=== PATIENT | female | born 1950 | race Caucasian/White ===

== ENCOUNTER 2018-03-25 10:02 | Emergency (ER) | payer MEDICARE, OTHER ==
[2018-03-25] MEDS ORDERED: Sodium Chloride 0.9% 2.5 ML Syringe FLUSH PRN (10:08)
[2018-03-25] MEDS ORDERED: Sodium Chloride 0.9% 10 ML Syringe FLUSH PRN (10:08)
[2018-03-25] MEDS ORDERED: Sodium Chloride 0.9% 1,000 ML IV ONE ×2 (10:09→10:54)
[2018-03-25 10:43] LABS: CHLORIDE,CL 104 mmol/L (98-107); SODIUM,NA 141 mmol/L (136-145)
--- NOTE | 2018-03-25 10:57 | CR ---
EXAMINATION: Two-view chest (PA and Lateral views). HISTORY: Shortness of breath. FINDINGS: The trachea is midline. The cardiomediastinal silhouette is within normal limits. No pulmonary infilt rates, effusions or pneumothorax. Mild bibasilar atelectasis. Osseous structures appear unremarkable. IMPRESSION: No acute cardiopulmonary process.
[2018-03-25] MEDS ORDERED: cefTRIAXone 1 GM in Premix Bag 1 BAG IV ONE (11:03)
--- NOTE | 2018-03-25 11:18 | EDM.PDOC ---
ED HPI GENERAL MEDICAL PROBLEM - General Chief Complaint: Cardiovascular Problem Stated Complaint: LOW BLOOD PRESSURE Time Seen by Provider: 03/25/18 10:07 Source of Information: Reports: Patient History Limitations: Reports: No Limitations - History of Present Illness INITIAL COMMENTS - FREE TEXT/NARRATIVE: HISTORY AND PHYSICAL: 67-year-old female presenting with low blood pressure History of Present Illness: []Patient was at the clinic yesterday blood pressure 60s over 40s. She received a liter of fluid IV at the clinic and improved. Today with reevaluation her blood pressure was 75/40 and she was sent to the emergency department. The pressure on arrival here 117/70 When she was taken for chest x-ray and returned her blood pressure was 75/40. She has some dizziness "some time". She's had cortisone injections to her knees and a hip injection she also was recently on prednisone 20 mg for 5 days and with amoxicillin for a double ear infection. Is not on any medication for infection at this time her chart has been reviewed vital signs reviewed. Patient is complaining of burning to the bottom of her feet at night when she goes to bed Review of Systems: As per history of present illness and below otherwise all systems reviewed and negative. Past medical history: As per history of present illness and as reviewed below otherwise noncontributory. Surgical history: As per history of present illness and as reviewed below otherwise noncontributory. Social history: No reported history of drug or alcohol abuse. Family history: As per history of present illness and as reviewed below otherwise noncontributory. Physical exam: Alert and oriented female answering questions appropriately in full sentences without any shortness of breath. She is nontoxic in appearance. HEENT: Atraumatic, normocehpalic, pupils reactive, negative for conjunctival pallor or scleral icterus, mucous membranes moist, throat clear, neck supple, nontender, trachea midline. Lungs: Clear to auscultation, breath sounds equal bilaterally, chest non tender. Heart: S1S2, regular, negative for clicks, rubs, or JVD. Abdomen: Soft, nondistended, nontender. Negative for masses or hepatossplenmegaly. Positive for right costovertebral tenderness. Pelvis: Stable nontender. Genitourinary: Deferred. Rectal: Deferred Extremities: Atraumatic, negative for cords or calf pain. Neurovascular unremarkable. Neuro: Awake, alert, oriented. Cranial nerves II through XII unremarkable. Cerebellum unremarkable. Motor and sensory unremarkable throughout. Exam nonfocal. Diagnostics: []CBC, CMP, TSH, EKG, CXR, AMYLASE, LIPASE, ORTHOSTATIC HYPOTENSION Therapeutics: []NS IV ROCEPHIN 1 GM IV Impression: [Dehydration UTI ORTHOSTATIC HYPOTENSION Peripheral Neuropathy Plan: []Discharged home Ciprofloxacin 500 mg twice a day 5 days Gabapentin 300 mg at at bedtime when necessary#20 Follow up with your PCP Zulma Reyes NP Definitive disposition and diagnosis as appropriate pending reevaluation and review of above. Onset: Sudden Duration: Day(s): (2) Location: Reports: Generalized Quality: Reports: Same as Previous Episode Severity: Mild Improves with: Reports: None Worsens with: Reports: None Associated Symptoms: Reports: Other (dizziness) - Related Data Allergies Allergy/AdvReac Type Severity Reaction Status Date / Time animal dander Allergy Sneezing Verified 03/25/18 10:05 perfume Allergy Sneezing Verified 03/25/18 10:05 Home Meds: Home Meds Aspirin [[place] Aspirin] 81 mg PO DAILY 05/20/15 [History] Estrogens,Conj/Bazedoxifene [Duavee 0.45-20 mg Tablet] 1 tab PO DAILY 05/20/15 [ History] Lisinopril/Hydrochlorothiazide [Lisinopril-Hctz 20-12.5 mg Tab] 1 tab PO DAILY 05/20/15 [History] atorvaSTATin Calcium [Atorvastatin Calcium] 80 mg PO DAILY 05/20/15 [History] Ciprofloxacin HCl [Cipro] 500 mg PO BID #10 tablet 03/25/18 [Rx] Gabapentin [Neurontin] 100 mg PO DAILY #20 capsule 03/25/18 [Rx] Past Medical History HEENT History: Reports: None Cardiovascular History: Reports: High Cholesterol, Hypertension Respiratory History: Reports: None Gastrointestinal History: Reports: None Genitourinary History: Reports: None MENTAL HEALTH DIRECTOR History: Reports: Musculoskeletal History: Reports: None Neurological History: Reports: None Psychiatric History: Reports: None Endocrine/Metabolic History: Reports: None Hematologic History: Reports: None Immunologic History: Reports: None Oncologic (Cancer) History: Reports: None Dermatologic History: Reports: None - Infectious Disease History Infectious Disease History: Reports: Mumps - Past Surgical History Head Surgeries/Procedures: Reports: None HEENT Surgical History: Reports: None Cardiovascular Surgical History: Reports: None Respiratory Surgical History: Reports: None GI Surgical History: Reports: None Female Surgical History: Reports: None Endocrine Surgical History: Reports: None Neurological Surgical History: Reports: None Musculoskeletal Surgical History: Reports: None Oncologic Surgical History: Reports: None Dermatological Surgical History: Reports: None Social & Family History - Family History Family Medical History: Noncontributory - Tobacco Use Smoking Status *Q: Former Smoker Used Tobacco, but Quit: Yes Month/Year Tobacco Last Used: 1997 - Caffeine Use Caffeine Use: Reports: None - Recreational Drug Use Recreational Drug Use: No ED ROS GENERAL - Review of Systems Review Of Systems: ROS reveals no pertinent complaints other than HPI. ED EXAM, GENERAL - Physical Exam Exam: See Below (see dictation) Course - Vital Signs Last Recorded V/S: Last Vital Signs Temp 35.9 C 03/25/18 10:06 Pulse 69 03/25/18 11:58 Resp 16 03/25/18 11:58 BP 111/57 L 03/25/18 11:58 Pulse Ox 95 03/25/18 11:58 Orthostatic Blood Pressure [ 93/54 Standing] Orthostatic Blood Pressure [ 103/55 Sitting] Orthostatic Blood Pressure [ 104/54 Supine] - Orders/Labs/Meds Orders: Active Orders 24 hr Category Date Time Status EKG Documentation Completion [RC] STAT Care 03/25/18 10:24 Active Orthostatic Vital Signs [RC] ASDIRECTED Care 03/25/18 10:56 Active UA W/MICROSCOPIC [URIN] Stat Lab 03/25/18 10:24 Ordered Sodium Chloride 0.9% [Saline Flush] Med 03/25/18 10:08 Active 10 ml FLUSH ASDIRECTED PRN Sodium Chloride 0.9% [Saline Flush] Med 03/25/18 10:08 Active 2.5 ml FLUSH ASDIRECTED PRN Saline Lock Insert [OM.PC] Stat Oth 03/25/18 10:08 Ordered Medication Orders Sodium Chloride (Saline Flush) 10 ml FLUSH ASDIRECTED PRN PRN Reason: Keep Vein Open Sodium Chloride (Saline Flush) 2.5 ml FLUSH ASDIRECTED PRN PRN Reason: Keep Vein Open Labs: Laboratory Tests 03/25/18 03/25/18 03/25/18 Range/Units 10:12 10:12 10:24 WBC 11.05 H (4.0-11.0) K/uL RBC 4.04 L (4.30-5.90) M/uL Hgb 11.7 L (12.0-16.0) g/dL Hct 36.0 (36.0-46.0) % MCV 89.1 (80.0-98.0) fL MCH 29.0 (27.0-32.0) pg MCHC 32.5 (31.0-37.0) g/dL RDW Std Deviation 41.9 (28.0-62.0) fl RDW Coeff of Kanu 13 (11.0-15.0) % Plt Count 201 (150-400) K/uL MPV 10.90 (7.40-12.00) fL Neut % (Auto) 70.2 (48.0-80.0) % Lymph % (Auto) 20.7 (16.0-40.0) % [place] % (Auto) 6.7 (0.0-15.0) % Eos % (Auto) 2.1 (0.0-7.0) % Baso % (Auto) 0.3 (0.0-1.5) % Neut # (Auto) 7.8 H (1.4-5.7) K/uL Lymph # (Auto) 2.3 (0.6-2.4) K/uL [place] # (Auto) 0.7 (0.0-0.8) K/uL Eos # (Auto) 0.2 (0.0-0.7) K/uL Baso # (Auto) 0.0 (0.0-0.1) K/uL Sodium 141 (136-145) mmol/L Potassium 3.6 (3.5-5.1) mmol/L Chloride 104 (98-107) mmol/L Carbon Dioxide 25.7 (21.0-32.0) mmol/L BUN 29 H (7.0-18.0) mg/dL Creatinine 1.5 H (0.6-1.0) mg/dL Est Cr Clr Drug Dosing 31.43 mL/min Estimated GFR (MDRD) 34.6 ml/min Glucose 102 (74-106) mg/dL Calcium 10.2 H (8.5-10.1) mg/dL Total Bilirubin 0.5 (0.2-1.0) mg/dL AST 21 (15-37) IU/L ALT 36 (14-63) IU/L Alkaline Phosphatase 81 (46-116) U/L Troponin I < 0.050 (0.000-0.056) ng/mL Total Protein 7.3 (6.4-8.2) g/dL Albumin 4.0 (3.4-5.0) g/dL Globulin 3.3 (2.0-3.5) g/dL Albumin/Globulin Ratio 1.2 L (1.3-2.8) Amylase 122 H (25-115) U/L TSH 3rd Generation (0.36-3.74) uIU/mL Urine Color YELLOW Urine Appearance CLEAR Urine pH 7.5 (5.0-8.0) Ur Specific [place] 1.015 (1.001-1.035) Urine Protein 30 (NEGATIVE) mg/dL Urine Glucose (UA) NEGATIVE (NEGATIVE) mg/dL Urine Ketones NEGATIVE (NEGATIVE) mg/dL Urine Occult Blood TRACE-INTACT (NEGATIVE) Urine Nitrite NEGATIVE (NEGATIVE) Urine Bilirubin NEGATIVE (NEGATIVE) Urine Urobilinogen 0.2 (<2.0) EU/dL Ur Leukocyte Esterase TRACE (NEGATIVE) Urine RBC 2-4 (0-2/HPF) Urine WBC 10-15 (0-5/HPF) Ur Epithelial Cells MANY (NONE-FEW) Urine Bacteria 1+ H (NEGATIVE) 03/25/18 Range/Units 10:59 WBC (4.0-11.0) K/uL RBC (4.30-5.90) M/uL Hgb (12.0-16.0) g/dL Hct (36.0-46.0) % MCV (80.0-98.0) fL MCH (27.0-32.0) pg MCHC (31.0-37.0) g/dL RDW Std Deviation (28.0-62.0) fl RDW Coeff of Kanu (11.0-15.0) % Plt Count (150-400) K/uL MPV (7.40-12.00) fL Neut % (Auto) (48.0-80.0) % Lymph % (Auto) (16.0-40.0) % [place] % (Auto) (0.0-15.0) % Eos % (Auto) (0.0-7.0) % Baso % (Auto) (0.0-1.5) % Neut # (Auto) (1.4-5.7) K/uL Lymph # (Auto) (0.6-2.4) K/uL [place] # (Auto) (0.0-0.8) K/uL Eos # (Auto) (0.0-0.7) K/uL Baso # (Auto) (0.0-0.1) K/uL Sodium (136-145) mmol/L Potassium (3.5-5.1) mmol/L Chloride (98-107) mmol/L Carbon Dioxide (21.0-32.0) mmol/L BUN (7.0-18.0) mg/dL Creatinine (0.6-1.0) mg/dL Est Cr Clr Drug Dosing mL/min Estimated GFR (MDRD) ml/min Glucose (74-106) mg/dL Calcium (8.5-10.1) mg/dL Total Bilirubin (0.2-1.0) mg/dL AST (15-37) IU/L ALT (14-63) IU/L Alkaline Phosphatase (46-116) U/L Troponin I (0.000-0.056) ng/mL Total Protein (6.4-8.2) g/dL Albumin (3.4-5.0) g/dL Globulin (2.0-3.5) g/dL Albumin/Globulin Ratio (1.3-2.8) Amylase (25-115) U/L TSH 3rd Generation 2.20 (0.36-3.74) uIU/mL Urine Color Urine Appearance Urine pH (5.0-8.0) Ur Specific [place] (1.001-1.035) Urine Protein (NEGATIVE) mg/dL Urine Glucose (UA) (NEGATIVE) mg/dL Urine Ketones (NEGATIVE) mg/dL Urine Occult Blood (NEGATIVE) Urine Nitrite (NEGATIVE) Urine Bilirubin (NEGATIVE) Urine Urobilinogen (<2.0) EU/dL Ur Leukocyte Esterase (NEGATIVE) Urine RBC (0-2/HPF) Urine WBC (0-5/HPF) Ur Epithelial Cells (NONE-FEW) Urine Bacteria (NEGATIVE) Meds: Medications Generic Name Dose Route Start Last Admin Trade Name Angela PRN Reason Stop Dose Admin Sodium Chloride 10 ml 03/25/18 10:08 Saline Flush FLUSH ASDIRECTED PRN Keep Vein Open Sodium Chloride 2.5 ml 03/25/18 10:08 Saline Flush FLUSH ASDIRECTED PRN Keep Vein Open Discontinued Medications Generic Name Dose Route Start Last Admin Trade Name Angela PRN Reason Stop Dose Admin Sodium Chloride 1,000 mls @ 999 mls/hr 03/25/18 10:09 03/25/18 11:18 Normal Saline IV 03/25/18 11:09 400 mls/hr STAT ONE Infusion Sodium Chloride 1,000 mls @ 999 mls/hr 03/25/18 10:54 03/25/18 11:19 Normal Saline IV 03/25/18 11:54 999 mls/hr STAT ONE Administration Ceftriaxone Sodium/Dextrose 1 50 mls @ 100 mls/hr 03/25/18 11:03 03/25/18 11: 18 gm/ Premix IV 03/25/18 11:32 100 mls/hr ONETIME ONE Administration Departure - Departure Time of Disposition: 12:28 Disposition: Home, Self-Care 01 Condition: Good Clinical Impression: Dehydration UTI (urinary tract infection) Qualifiers: Urinary tract infection type: acute cystitis Hematuria presence: without hematuria Qualified Code(s): N30.00 - Acute cystitis without hematuria Peripheral neuropathy Qualifiers: Peripheral neuropathy type: polyneuropathy, unspecified Qualified Code(s): G62.9 - Polyneuropathy, unspecified Prescriptions: Ciprofloxacin HCl [Cipro] 500 mg PO BID #10 tablet Gabapentin [Neurontin] 100 mg PO DAILY #20 capsule Instructions: Peripheral Neuropathy, Urinary Tract Infection, Adult, Easy-to- Read, Dehydration, Adult, [id number] Forms: ED Department Discharge Additional Instructions: The following information is given to patients seen in the emergency department who are being discharged to home. This information is to outline your options for follow-up care. We provide all patients seen in our emergency department with a follow-up referral. The need for follow-up, as well as the timing and circumstances, are variable depending upon the specifics of your emergency department visit. If you don't have a primary care physician on staff, we will provide you with a referral. We always advise you to contact your personal physician following an emergency department visit to inform them of the circumstance of the visit and for follow-up with them and/or the need for any referrals to a consulting specialist. The emergency department will also refer you to a specialist when appropriate. This referral assures that you have the opportunity for followup care with a specialist. All of these measure are taken in an effort to provide you with optimal care, which includes your followup. Under all circumstances we always encourage you to contact your private physician who remains a resource for coordinating your care. When calling for followup care, please make the office aware that this follow-up is from your recent emergency room visit. If for any reason you are refused follow-up, please contact the [facility] emergency department at and asked to speak to the emergency department charge nurse. Follow-up with your primary care provider Given Rocephin IV in the emergency room and 2 L of fluid For your peripheral neuropathy of giving Him 10 to take before bedtime Referral has been made for you to see Dr. Josette Nelson You will need to call for an appointment [facility] [address] [place] [address], [address] [place] [address] - My Orders Last 24 Hours: My Active Orders 03/25/18 10:08 Sodium Chloride 0.9% [Saline Flush] 10 ml FLUSH ASDIRECTED PRN Sodium Chloride 0.9% [Saline Flush] 2.5 ml FLUSH ASDIRECTED PRN Saline Lock Insert [OM.PC] Stat 03/25/18 10:24 EKG Documentation Completion [RC] STAT UA W/MICROSCOPIC [URIN] Stat 03/25/18 10:56 Orthostatic Vital Signs [RC] ASDIRECTED - Assessment/Plan Last 24 Hours: My Active Orders 03/25/18 10:08 Sodium Chloride 0.9% [Saline Flush] 10 ml FLUSH ASDIRECTED PRN Sodium Chloride 0.9% [Saline Flush] 2.5 ml FLUSH ASDIRECTED PRN Saline Lock Insert [OM.PC] Stat 03/25/18 10:24 EKG Documentation Completion [RC] STAT UA W/MICROSCOPIC [URIN] Stat 03/25/18 10:56 Orthostatic Vital Signs [RC] ASDIRECTED
[2018-03-25 12:53] VITALS: BP 114/57
== END 2018-03-25 12:51 | disposition home or self-care (01) ==
LOC: MW.ED 10:02
DX: I95.1 Orthostatic hypotension (principal); E86.0 Dehydration; N30.00 Acute cystitis without hematuria; G62.9 Polyneuropathy, unspecified; I10 Essential (primary) hypertension; Z91.048 Other nonmedicinal substance allergy status; Z79.82 Long term (current) use of aspirin; Z79.899 Other long term (current) drug therapy; Z87.891 Personal history of nicotine dependence
CPT/HCPCS: 36415; 71046; 80053; 81001; 82150; 84443; 84484; 85025; 93005; 96361; 96365; 99285; J0696; J7040

== ENCOUNTER 2018-10-17 15:18 | Observation (INO) | payer MEDICARE, OTHER ==
[2018-10-17] MEDS ORDERED: Sodium Chloride 0.9% 10 ML Syringe FLUSH PRN (15:28)
[2018-10-17] MEDS ORDERED: Sodium Chloride 0.9% 2.5 ML Syringe FLUSH PRN (15:28)
--- NOTE | 2018-10-17 15:29 | EDM.PDOC ---
ED HPI GENERAL MEDICAL PROBLEM - General Chief Complaint: General Stated Complaint: SHOT NEEDED Time Seen by Provider: 10/17/18 15:29 Source of Information: Reports: Patient History Limitations: Reports: No Limitations - History of Present Illness INITIAL COMMENTS - FREE TEXT/NARRATIVE: HISTORY AND PHYSICAL: History of present illness: Patient is a 68-year-old female who is sent to the ED by her senior pensions administrator for her low potassium. Patient was seen Dr. Easley today secondary to protein in her urine. She states she recalls that her potassium was 2.1 and was told to come to the ED. She does have a history of low potassium and was taking a potassium supplement but recently stopped taking this as she is supposed to have surgery at the end of the month for a pinched nerve in her back. She was also taking magnesium for neuropathic pain, states it was not related to hypomagnesmia. She denies any chest pain, shortness of breath, muscle aches or weakness other than secondary to her pinched nerve which is not new. Past medical history significant for hypertension on hydrochlorothiazide. Review of systems: As per history of present illness and below otherwise all systems reviewed and negative. Past medical history: As per history of present illness and as reviewed below otherwise noncontributory. Surgical history: As per history of present illness and as reviewed below otherwise noncontributory. Social history: No reported history of drug or alcohol abuse. Family history: As per history of present illness and as reviewed below otherwise noncontributory. Physical exam: General: Patient sitting comfortably in no acute distress and nontoxic appearing HEENT: Atraumatic, normocephalic, pupils reactive, negative for conjunctival pallor or scleral icterus, mucous membranes moist, throat clear, neck supple, nontender, trachea midline. No meningeal signs. Lungs: Clear to auscultation, breath sounds equal bilaterally, chest nontender. Heart: S1S2, regular, negative for clicks, rubs, or overt murmur. Abdomen: Soft, nondistended, nontender. Negative for masses or hepatosplenomegaly. Negative for costovertebral tenderness. Pelvis: Stable nontender. Genitourinary: Deferred. Rectal: Deferred. Extremities: Atraumatic, negative for cords or calf pain. Neurovascular unremarkable. Neuro: Awake, alert, oriented. Cranial nerves II through XII unremarkable. Cerebellum unremarkable. Motor and sensory unremarkable throughout. Exam nonfocal. Notes: Diagnostics: CBC, CMP, Magnesium, EKG Therapeutics: 80mEq Potassium Chloride PO 40mEq Potassium Chloride in 1L NS IV Prescriptions: Impression: Hypokalemia Plan: Discussed with Dr. Hawkins, patient accepted for admission to observation for hypokalemia Definitive disposition and diagnosis as appropriate pending reevaluation and review of above. - Related Data Allergies Allergy/AdvReac Type Severity Reaction Status Date / Time animal dander Allergy Sneezing Verified 10/17/18 15:26 perfume Allergy Sneezing Verified 10/17/18 15:26 Home Meds: Home Meds Amoxicillin/Potassium Clav [Amox-Clav 875-125 mg Tablet] 1 tab PO BID 10/17/18 [ History] Berberine Hcl 1,800 mg PO BID 10/17/18 [History] Estrogen,Con/M-Progest Acet [Prempro 0.3 MG-1.5 MG] 0.5 tab PO DAILY 10/17/18 [ History] Oxybutynin Chloride [Oxybutynin Chloride ER] 5 mg PO DAILY 10/17/18 [History] Rosuvastatin [Crestor] 40 mg PO DAILY 10/17/18 [History] hydroCHLOROthiazide [Hydrochlorothiazide] 25 mg PO DAILY 10/17/18 [History] traZODone HCl [Trazodone HCl] 50 mg PO ASDIRECTED PRN 10/17/18 [History] Past Medical History HEENT History: Reports: None Cardiovascular History: Reports: High Cholesterol, Hypertension Respiratory History: Reports: None Gastrointestinal History: Reports: None Genitourinary History: Reports: None [place] History: Reports: Musculoskeletal History: Reports: Back Pain, Chronic Neurological History: Reports: None, Neuropathy, Peripheral Psychiatric History: Reports: Anxiety, Depression Endocrine/Metabolic History: Reports: None Hematologic History: Reports: None Immunologic History: Reports: None Oncologic (Cancer) History: Reports: None Dermatologic History: Reports: None - Infectious Disease History Infectious Disease History: Reports: Mumps - Past Surgical History Head Surgeries/Procedures: Reports: None HEENT Surgical History: Reports: None Cardiovascular Surgical History: Reports: None Respiratory Surgical History: Reports: None GI Surgical History: Reports: None Female Surgical History: Reports: None, Tubal Ligation Endocrine Surgical History: Reports: None Neurological Surgical History: Reports: None Musculoskeletal Surgical History: Reports: None Oncologic Surgical History: Reports: None Dermatological Surgical History: Reports: None Social & Family History - Family History Family Medical History: Noncontributory - Caffeine Use Caffeine Use: Reports: None ED ROS GENERAL - Review of Systems Review Of Systems: ROS reveals no pertinent complaints other than HPI. ED EXAM, GENERAL - Physical Exam Exam: See Below (see dictation) Course - Vital Signs Last Recorded V/S: Last Vital Signs Temp 96.9 F 10/17/18 15:26 Pulse 97 10/17/18 15:26 Resp 18 10/17/18 15:26 BP 117/76 10/17/18 15:26 Pulse Ox 93 L 10/17/18 15:26 - Orders/Labs/Meds Orders: Active Orders 24 hr Category Date Time Status EKG Documentation Completion [RC] STAT Care 10/17/18 15:24 Active Sodium Chloride 0.9% [Saline Flush] Med 10/17/18 15:28 Active 10 ml FLUSH ASDIRECTED PRN Sodium Chloride 0.9% [Saline Flush] Med 10/17/18 15:28 Active 2.5 ml FLUSH ASDIRECTED PRN Sodium Chloride 0.9% with KCl [Normal Saline with 40 Med 10/17/18 16:45 Ordered mEq KCl] 1,000 ml IV ASDIRECTED Saline Lock Insert [OM.PC] Stat Oth 10/17/18 15:28 Ordered Medication Orders Sodium Chloride (Saline Flush) 10 ml FLUSH ASDIRECTED PRN PRN Reason: Keep Vein Open Sodium Chloride (Saline Flush) 2.5 ml FLUSH ASDIRECTED PRN PRN Reason: Keep Vein Open Labs: Laboratory Tests 10/17/18 10/17/18 Range/Units 15:35 15:35 WBC 11.19 H (4.0-11.0) K/uL RBC 5.59 (4.30-5.90) M/uL Hgb 16.9 H (12.0-16.0) g/dL Hct 47.1 H (36.0-46.0) % MCV 84.3 (80.0-98.0) fL MCH 30.2 (27.0-32.0) pg MCHC 35.9 (31.0-37.0) g/dL RDW Std Deviation 40.2 (28.0-62.0) fl RDW Coeff of Kanu 13 (11.0-15.0) % Plt Count 184 (150-400) K/uL MPV 10.80 (7.40-12.00) fL Neut % (Auto) 72.5 (48.0-80.0) % Lymph % (Auto) 18.5 (16.0-40.0) % [place] % (Auto) 8.1 (0.0-15.0) % Eos % (Auto) 0.7 (0.0-7.0) % Baso % (Auto) 0.2 (0.0-1.5) % Neut # (Auto) 8.1 H (1.4-5.7) K/uL Lymph # (Auto) 2.1 (0.6-2.4) K/uL [place] # (Auto) 0.9 H (0.0-0.8) K/uL Eos # (Auto) 0.1 (0.0-0.7) K/uL Baso # (Auto) 0.0 (0.0-0.1) K/uL Nucleated RBC % 0.0 /100WBC Nucleated RBCs # 0 K/uL Sodium 137 (136-145) mmol/L Potassium 2.2 L* (3.5-5.1) mmol/L Chloride 95 L (98-107) mmol/L Carbon Dioxide 28.9 (21.0-32.0) mmol/L BUN 10 (7.0-18.0) mg/dL Creatinine 0.9 (0.6-1.0) mg/dL Est Cr Clr Drug Dosing 53.83 mL/min Estimated GFR (MDRD) > 60.0 ml/min Glucose 115 H (74-106) mg/dL Calcium 11.3 H (8.5-10.1) mg/dL Magnesium 2.1 (1.8-2.4) mg/dL Total Bilirubin 0.9 (0.2-1.0) mg/dL AST 25 (15-37) IU/L ALT 64 H (14-63) IU/L Alkaline Phosphatase 78 (46-116) U/L Total Protein 7.7 (6.4-8.2) g/dL Albumin 4.0 (3.4-5.0) g/dL Globulin 3.7 (2.6-4.0) g/dL Albumin/Globulin Ratio 1.1 (0.9-1.6) Meds: Medications Generic Name Dose Route Start Last Admin Trade Name Angela PRN Reason Stop Dose Admin Sodium Chloride 10 ml 10/17/18 15:28 Saline Flush FLUSH ASDIRECTED PRN Keep Vein Open Sodium Chloride 2.5 ml 10/17/18 15:28 Saline Flush FLUSH ASDIRECTED PRN Keep Vein Open Discontinued Medications Generic Name Dose Route Start Last Admin Trade Name Angela PRN Reason Stop Dose Admin Potassium Chloride 80 meq 10/17/18 16:17 10/17/18 16:33 Klor-Con M20 PO 10/17/18 16:18 80 meq ONETIME ONE Administration Departure - Departure Time of Disposition: 16:48 Disposition: Refer to Observation Condition: Good Clinical Impression: Hypokalemia - Discharge Information Referrals: Jovana Reyes CHILD SUPPORT AGENT [Primary Care Provider] - Forms: ED Department Discharge - My Orders Last 24 Hours: My Active Orders 10/17/18 15:24 EKG Documentation Completion [RC] STAT 10/17/18 15:28 Sodium Chloride 0.9% [Saline Flush] 10 ml FLUSH ASDIRECTED PRN Sodium Chloride 0.9% [Saline Flush] 2.5 ml FLUSH ASDIRECTED PRN Saline Lock Insert [OM.PC] Stat 10/17/18 16:45 Sodium Chloride 0.9% with KCl [Normal Saline with 40 mEq KCl] 1,000 ml IV ASDIRECTED - Assessment/Plan Last 24 Hours: My Active Orders 10/17/18 15:24 EKG Documentation Completion [RC] STAT 10/17/18 15:28 Sodium Chloride 0.9% [Saline Flush] 10 ml FLUSH ASDIRECTED PRN Sodium Chloride 0.9% [Saline Flush] 2.5 ml FLUSH ASDIRECTED PRN Saline Lock Insert [OM.PC] Stat 10/17/18 16:45 Sodium Chloride 0.9% with KCl [Normal Saline with 40 mEq KCl] 1,000 ml IV ASDIRECTED
[2018-10-17 16:11] LABS: CHLORIDE,CL 95 mmol/L (98-107); SODIUM,NA 137 mmol/L (136-145)
[2018-10-17] MEDS ORDERED: Potassium Chloride 20 MEQ Tab.ER PO ONE ×2 (16:17→22:35)
[2018-10-17] MEDS: Sodium Chloride 0.9% with KCl 1,000 ML IV SCH (17:05)
[2018-10-17] MEDS ORDERED: traZODone 50 MG Tab PO PRN (21:32)
[2018-10-17] MEDS ORDERED: Acetaminophen/HYDROcodone 325-5 MG Tab PO PRN (21:32)
[2018-10-17] MEDS: Amoxicillin/Clavulanate K 875-125 MG Tab PO SCH (22:00)
--- NOTE | 2018-10-17 22:44 | PCM.HP ---
H&P History of Present Illness - General Date of Service: 10/17/18 Admit Problem/Dx: Admission Diagnosis/Problem Admission Diagnosis/Problem Hypokalemia - History of Present Illness Initial Comments - Free Text/Narative: 68 yo female who had lab work done after a nephrology anointment for work up of proteinuria. She has a history of hypertension and chronic back pain with plans of laminectomy in 4 weeks. She does admitted to numbness of her hands today. She used to to take potassium supplementation but has stopped taking them. She was told to report to the ED when she was found to have a potassium of 2.2 on labs today. Lower Back Pain Score (Numeric/FACES): 2 - Related Data Allergies/Adverse Reactions: Allergies Allergy/AdvReac Type Severity Reaction Status Date / Time animal dander Allergy Sneezing Verified 10/17/18 15:26 perfume Allergy Sneezing Verified 10/17/18 15:26 Home Medications: Home Meds Acetaminophen/HYDROcodone [[place] 325-5 MG] 1 tab PO BID PRN 10/17/18 [History] Amoxicillin/Potassium Clav [Amox-Clav 875-125 mg Tablet] 1 tab PO BID 10/17/18 [ History] Berberine Hcl 1,800 mg PO BID 10/17/18 [History] Estrogen,Con/M-Progest Acet [Prempro 0.3 MG-1.5 MG] 0.5 tab PO DAILY 10/17/18 [ History] Oxybutynin Chloride [Oxybutynin Chloride ER] 5 mg PO DAILY 10/17/18 [History] Rosuvastatin [Crestor] 40 mg PO DAILY 10/17/18 [History] traZODone HCl [Trazodone HCl] 50 mg PO ASDIRECTED PRN 10/17/18 [History] Lisinopril 10 mg PO DAILY 14 Days #14 tablet 10/18/18 [Rx] Potassium Chloride [Klor-Con 10] 10 meq PO DAILY 14 Days #14 tab.er 10/18/18 [Rx ] Past Medical History HEENT History: Reports: None Cardiovascular History: Reports: High Cholesterol, Hypertension Respiratory History: Reports: None Gastrointestinal History: Reports: None Genitourinary History: Reports: None WO[employer] History: Reports: Musculoskeletal History: Reports: Back Pain, Chronic Neurological History: Reports: None, Neuropathy, Peripheral Psychiatric History: Reports: Anxiety, Depression Endocrine/Metabolic History: Reports: None Hematologic History: Reports: None Immunologic History: Reports: None Oncologic (Cancer) History: Reports: None Dermatologic History: Reports: None - Infectious Disease History Infectious Disease History: Reports: Mumps - Past Surgical History Head Surgeries/Procedures: Reports: None HEENT Surgical History: Reports: None Cardiovascular Surgical History: Reports: None Respiratory Surgical History: Reports: None GI Surgical History: Reports: None Female Surgical History: Reports: None, Tubal Ligation Endocrine Surgical History: Reports: None Neurological Surgical History: Reports: None Musculoskeletal Surgical History: Reports: None Oncologic Surgical History: Reports: None Dermatological Surgical History: Reports: None Social & Family History - Family History Family Medical History: Noncontributory - Tobacco Use Smoking Status *Q: Never Smoker Used Tobacco, but Quit: Yes Month/Year Tobacco Last Used: 1997 Second Hand Smoke Exposure: No - Caffeine Use Caffeine Use: Reports: Coffee, Tea - Alcohol Use Date of Last Drink: 09/26/18 - Recreational Drug Use Recreational Drug Use: No H&P Review of Systems - Review of Systems: Review Of Systems: ROS reveals no pertinent complaints other than HPI. Exam - Exam Exam: See Below - Vital Signs Vital Signs: Last Vital Signs Temp 36.4 C 10/17/18 20:00 Pulse 89 10/17/18 20:00 Resp 16 10/17/18 20:00 BP 134/83 10/17/18 20:00 Pulse Ox 95 10/17/18 20:00 Weight: 82.826 kg - Exam General: Alert, Oriented Lungs: Clear to Auscultation, Normal Respiratory Effort Cardiovascular: Regular Rate, Regular Rhythm GI/Abdominal Exam: Soft, Non-Tender Extremities: Non-Tender, No Pedal Edema - Patient Data Lab Results Last 24 hrs: Laboratory Results - last 24 hr 10/17/18 10/17/18 10/17/18 Range/Units 15:35 15:35 22:05 WBC 11.19 H (4.0-11.0) K/uL RBC 5.59 (4.30-5.90) M/uL Hgb 16.9 H (12.0-16.0) g/dL Hct 47.1 H (36.0-46.0) % MCV 84.3 (80.0-98.0) fL MCH 30.2 (27.0-32.0) pg MCHC 35.9 (31.0-37.0) g/dL RDW Std Deviation 40.2 (28.0-62.0) fl RDW Coeff of Kanu 13 (11.0-15.0) % Plt Count 184 (150-400) K/uL MPV 10.80 (7.40-12.00) fL Neut % (Auto) 72.5 (48.0-80.0) % Lymph % (Auto) 18.5 (16.0-40.0) % [place] % (Auto) 8.1 (0.0-15.0) % Eos % (Auto) 0.7 (0.0-7.0) % Baso % (Auto) 0.2 (0.0-1.5) % Neut # (Auto) 8.1 H (1.4-5.7) K/uL Lymph # (Auto) 2.1 (0.6-2.4) K/uL [place] # (Auto) 0.9 H (0.0-0.8) K/uL Eos # (Auto) 0.1 (0.0-0.7) K/uL Baso # (Auto) 0.0 (0.0-0.1) K/uL Nucleated RBC % 0.0 /100WBC Nucleated RBCs # 0 K/uL Sodium 137 (136-145) mmol/L Potassium 2.2 L* 2.8 L (3.5-5.1) mmol/L Chloride 95 L (98-107) mmol/L Carbon Dioxide 28.9 (21.0-32.0) mmol/L BUN 10 (7.0-18.0) mg/dL Creatinine 0.9 (0.6-1.0) mg/dL Est Cr Clr Drug Dosing 53.83 mL/min Estimated GFR (MDRD) > 60.0 ml/min Glucose 115 H (74-106) mg/dL Calcium 11.3 H (8.5-10.1) mg/dL Magnesium 2.1 (1.8-2.4) mg/dL Total Bilirubin 0.9 (0.2-1.0) mg/dL AST 25 (15-37) IU/L ALT 64 H (14-63) IU/L Alkaline Phosphatase 78 (46-116) U/L Total Protein 7.7 (6.4-8.2) g/dL Albumin 4.0 (3.4-5.0) g/dL Globulin 3.7 (2.6-4.0) g/dL Albumin/Globulin Ratio 1.1 (0.9-1.6) Result Diagrams: 10/17/18 15:35 10/18/18 05:10 Problem List Initiated/Reviewed/Updated: Yes Orders Last 24hrs: Active Orders 24 hr Category Date Time Status Admission Status [Patient Status] [ADT] Stat ADT 10/17/18 16:48 Active Telemetry Monitoring [Cardiac Monitoring] [RC] Q8H Care 10/17/18 17:21 Active Regular Diet [DIET] Diet 10/17/18 Dinner Active BASIC METABOLIC PANEL,BMP [CHEM] AM Lab 10/18/18 05:11 Ordered Acetaminophen/HYDROcodone [[place] 325-5 MG] Med 10/17/18 21:32 Active 1 tab PO BID PRN Amoxicillin/Clavulanate K [Augmentin 875 MG/125 MG] Med 10/17/18 21:45 Active 1 tab PO BID Potassium Chloride [Klor-Con M20] Med 10/17/18 22:35 Once 40 meq PO ONETIME ONE Sodium Chloride 0.9% [Saline Flush] Med 10/17/18 15:28 Active 10 ml FLUSH ASDIRECTED PRN Sodium Chloride 0.9% [Saline Flush] Med 10/17/18 15:28 Active 2.5 ml FLUSH ASDIRECTED PRN Sodium Chloride 0.9% with KCl [Normal Saline with 40 Med 10/17/18 16:45 Active mEq KCl] 1,000 ml IV ASDIRECTED traZODone Med 10/17/18 21:32 Active 50 mg PO ASDIRECTED PRN Saline Lock Insert [OM.PC] Stat Oth 10/17/18 15:28 Ordered Medication Orders Hydrocodone Bitart/Acetaminophen ([place] 325-5 Mg) 1 tab PO BID PRN PRN Reason: Pain Last Admin: 10/17/18 22:01 Dose: 1 tab Amoxicillin/Clavulanate Potassium (Augmentin 875 Mg/125 Mg) 1 tab PO BID KISHA Last Admin: 10/17/18 22:00 Dose: 1 tab Potassium Chloride/Sodium Chloride (Normal Saline With 40 Meq Kcl) 1,000 mls @ 150 mls/hr IV ASDIRECTED KISHA Last Admin: 10/17/18 17:05 Dose: 150 mls/hr Potassium Chloride (Klor-Con M20) 40 meq PO ONETIME ONE Stop: 10/17/18 22:36 Sodium Chloride (Saline Flush) 10 ml FLUSH ASDIRECTED PRN PRN Reason: Keep Vein Open Sodium Chloride (Saline Flush) 2.5 ml FLUSH ASDIRECTED PRN PRN Reason: Keep Vein Open Trazodone HCl (Trazodone) 50 mg PO ASDIRECTED PRN PRN Reason: Pain Last Admin: 10/17/18 22:07 Dose: 50 mg Assessment/Plan Comment:: 68 yo female admitted for hypokalemia. We will give IV and oral potassium and hold her HCTZ.
[2018-10-18] MEDS: Sodium Chloride 0.9% with KCl 1,000 ML IV SCH ×2 (00:07→06:52)
[2018-10-18 05:47] LABS: CHLORIDE,CL 106 mmol/L (98-107); SODIUM,NA 141 mmol/L (136-145)
[2018-10-18 08:05] VITALS: BP 110/59
--- NOTE | 2018-10-18 08:05 | PCM.DCSUM1 ---
<David Mcdaniel - Last Filed: 10/18/18 08:31> Discharge Summary - Hospital Course Free Text/Narrative:: Admission date: 10/17/2018 Discharge date: 10/18/2018 Admission diagnosis: #1. Hypokalemia #2. History of Hypertension, chronic back pain Discharge diagnosis: #1. Hypokalemia - resolved #2. History of hypertension, chronic back pain Hospital course: This is a 68F with a hx as stated above that presented to the ER referred from nephrology after she was noted to have a potassium level of 2.2 at the clinic visit. Patient was there for a work up on proteinuria. She tells me that she has a scheduled laminectomy in 4 weeks and stopped taking her potassium supplement herself pre-op. She also endorsed some numbness/tingling in her hands that was ongoing last night but has since resolved. Patient was admitted and supplemented with PO and IV potassium which has brought her potassium this AM to 4.0. She feels well and would like to go home. As per med rec, it appears that she has also been taking HCTZ 25mg. Past records show that she was on a combination Lisinopril-HCTZ 20-12.5mg PO qday which was stopped secondary to hypotension. I will stop her HCTZ given the hypokalemia, and put her back on lisinopril 10mg PO qday, with a follow up appointment with her provider. She declines ever having any sort of reaction to lisinopril including cough, shortness of breath, tongue/lip swelling, rash. She was encouraged to continue with her PO potassium and follow up with her PCP/nephrology. Discharge medications: #1. Lisinopril 10mg PO qday #2. Potassium ER 10meq qday Discharge instructions: Follow up with your provider within 1 week for a recheck on blood pressure and potassium. Stop taking hydrochlorothiazide. She is scheduled for a pre-op appointment for her laminectomy this afternoon. - Discharge Data Discharge Date: 10/18/18 Discharge Disposition: Home, Self-Care 01 Condition: Fair - Patient Instructions Diet: Usual Diet as Tolerated Activity: As Tolerated - Discharge Plan *PRESCRIPTION DRUG MONITORING PROGRAM REVIEWED*: Not Applicable Prescriptions/Med Rec: Lisinopril 10 mg PO DAILY 14 Days #14 tablet Potassium Chloride [Klor-Con 10] 10 meq PO DAILY 14 Days #14 tab.er Home Medications: Home Meds Acetaminophen/HYDROcodone [Destrehan 325-5 MG] 1 tab PO BID PRN 10/17/18 [History] Amoxicillin/Potassium Clav [Amox-Clav 875-125 mg Tablet] 1 tab PO BID 10/17/18 [ History] Berberine Hcl 1,800 mg PO BID 10/17/18 [History] Estrogen,Con/M-Progest Acet [Prempro 0.3 MG-1.5 MG] 0.5 tab PO DAILY 10/17/18 [ History] Oxybutynin Chloride [Oxybutynin Chloride ER] 5 mg PO DAILY 10/17/18 [History] Rosuvastatin [Crestor] 40 mg PO DAILY 10/17/18 [History] traZODone HCl [Trazodone HCl] 50 mg PO ASDIRECTED PRN 10/17/18 [History] Lisinopril 10 mg PO DAILY 14 Days #14 tablet 10/18/18 [Rx] Potassium Chloride [Klor-Con 10] 10 meq PO DAILY 14 Days #14 tab.er 10/18/18 [Rx ] Patient Handouts: Potassium Salts tablets, extended-release tablets or capsules , Hypokalemia, Lisinopril tablets Referrals: [facility] [Outside] Jovana Reyes NP [Primary Care Provider] - 10/26/18 10:15 am - Discharge Summary/Plan Comment DC Time >30 min.: No Discharge Summary/Plan Comment: Admission date: 10/17/2018 Discharge date: 10/18/2018 Admission diagnosis: #1. Hypokalemia #2. History of Hypertension, chronic back pain Discharge diagnosis: #1. Hypokalemia - resolved #2. History of hypertension, chronic back pain Hospital course: This is a 68F with a hx as stated above that presented to the ER referred from nephrology after she was noted to have a potassium level of 2.2 at the clinic visit. Patient was there for a work up on proteinuria. She tells me that she has a scheduled laminectomy in 4 weeks and stopped taking her potassium supplement herself pre-op. She also endorsed some numbness/tingling in her hands that was ongoing last night but has since resolved. Patient was admitted and supplemented with PO and IV potassium which has brought her potassium this AM to 4.0. She feels well and would like to go home. As per med rec, it appears that she has also been taking HCTZ 25mg. Past records show that she was on a combination Lisinopril-HCTZ 20-12.5mg PO qday which was stopped secondary to hypotension. I will stop her HCTZ given the hypokalemia, and put her back on lisinopril 10mg PO qday, with a follow up appointment with her provider. She declines ever having any sort of reaction to lisinopril including cough, shortness of breath, tongue/lip swelling, rash. She was encouraged to continue with her PO potassium and follow up with her PCP/nephrology. Discharge medications: #1. Lisinopril 10mg PO qday #2. Potassium ER 10meq qday Discharge instructions: Follow up with your provider within 1 week for a recheck on blood pressure and potassium. Stop taking hydrochlorothiazide. She is scheduled for a pre-op appointment for her laminectomy this afternoon. - Patient Data Vitals - Most Recent: Last Vital Signs Temp 36.2 C 10/18/18 04:00 Pulse 74 10/18/18 04:00 Resp 15 10/18/18 04:00 BP 110/66 10/18/18 04:00 Pulse Ox 96 10/18/18 04:00 Weight - Most Recent: 82.826 kg I&O - Last 24 hours: Intake & Output 10/17/18 10/18/18 10/18/18 22:59 06:59 14:59 Intake Total 2586 Output Total 750 Balance 1836 Lab Results - Last 24 hrs: Laboratory Results - last 24 hr 10/17/18 10/17/18 10/17/18 Range/Units 15:35 15:35 22:05 WBC 11.19 H (4.0-11.0) K/uL RBC 5.59 (4.30-5.90) M/uL Hgb 16.9 H (12.0-16.0) g/dL Hct 47.1 H (36.0-46.0) % MCV 84.3 (80.0-98.0) fL MCH 30.2 (27.0-32.0) pg MCHC 35.9 (31.0-37.0) g/dL RDW Std Deviation 40.2 (28.0-62.0) fl RDW Coeff of Kanu 13 (11.0-15.0) % Plt Count 184 (150-400) K/uL MPV 10.80 (7.40-12.00) fL Neut % (Auto) 72.5 (48.0-80.0) % Lymph % (Auto) 18.5 (16.0-40.0) % [place] % (Auto) 8.1 (0.0-15.0) % Eos % (Auto) 0.7 (0.0-7.0) % Baso % (Auto) 0.2 (0.0-1.5) % Neut # (Auto) 8.1 H (1.4-5.7) K/uL Lymph # (Auto) 2.1 (0.6-2.4) K/uL [place] # (Auto) 0.9 H (0.0-0.8) K/uL Eos # (Auto) 0.1 (0.0-0.7) K/uL Baso # (Auto) 0.0 (0.0-0.1) K/uL Nucleated RBC % 0.0 /100WBC Nucleated RBCs # 0 K/uL Sodium 137 (136-145) mmol/L Potassium 2.2 L* 2.8 L (3.5-5.1) mmol/L Chloride 95 L (98-107) mmol/L Carbon Dioxide 28.9 (21.0-32.0) mmol/L BUN 10 (7.0-18.0) mg/dL Creatinine 0.9 (0.6-1.0) mg/dL Est Cr Clr Drug Dosing 53.83 mL/min Estimated GFR (MDRD) > 60.0 ml/min Glucose 115 H (74-106) mg/dL Calcium 11.3 H (8.5-10.1) mg/dL Magnesium 2.1 (1.8-2.4) mg/dL Total Bilirubin 0.9 (0.2-1.0) mg/dL AST 25 (15-37) IU/L ALT 64 H (14-63) IU/L Alkaline Phosphatase 78 (46-116) U/L Total Protein 7.7 (6.4-8.2) g/dL Albumin 4.0 (3.4-5.0) g/dL Globulin 3.7 (2.6-4.0) g/dL Albumin/Globulin Ratio 1.1 (0.9-1.6) 10/18/18 Range/Units 05:10 WBC (4.0-11.0) K/uL RBC (4.30-5.90) M/uL Hgb (12.0-16.0) g/dL Hct (36.0-46.0) % MCV (80.0-98.0) fL MCH (27.0-32.0) pg MCHC (31.0-37.0) g/dL RDW Std Deviation (28.0-62.0) fl RDW Coeff of Kanu (11.0-15.0) % Plt Count (150-400) K/uL MPV (7.40-12.00) fL Neut % (Auto) (48.0-80.0) % Lymph % (Auto) (16.0-40.0) % [place] % (Auto) (0.0-15.0) % Eos % (Auto) (0.0-7.0) % Baso % (Auto) (0.0-1.5) % Neut # (Auto) (1.4-5.7) K/uL Lymph # (Auto) (0.6-2.4) K/uL [place] # (Auto) (0.0-0.8) K/uL Eos # (Auto) (0.0-0.7) K/uL Baso # (Auto) (0.0-0.1) K/uL Nucleated RBC % /100WBC Nucleated RBCs # K/uL Sodium 141 (136-145) mmol/L Potassium 4.0 (3.5-5.1) mmol/L Chloride 106 (98-107) mmol/L Carbon Dioxide 26.2 (21.0-32.0) mmol/L BUN 11 (7.0-18.0) mg/dL Creatinine 0.9 (0.6-1.0) mg/dL Est Cr Clr Drug Dosing 53.83 mL/min Estimated GFR (MDRD) > 60.0 ml/min Glucose 96 (74-106) mg/dL Calcium 9.6 (8.5-10.1) mg/dL Magnesium (1.8-2.4) mg/dL Total Bilirubin (0.2-1.0) mg/dL AST (15-37) IU/L ALT (14-63) IU/L Alkaline Phosphatase (46-116) U/L Total Protein (6.4-8.2) g/dL Albumin (3.4-5.0) g/dL Globulin (2.6-4.0) g/dL Albumin/Globulin Ratio (0.9-1.6) Med Orders - Current: Current Medications Hydrocodone Bitart/Acetaminophen (Destrehan 325-5 Mg) 1 tab PO BID PRN PRN Reason: Pain Last Admin: 10/17/18 22:01 Dose: 1 tab Amoxicillin/Clavulanate Potassium (Augmentin 875 Mg/125 Mg) 1 tab PO BID KISHA Last Admin: 10/17/18 22:00 Dose: 1 tab Potassium Chloride/Sodium Chloride (Normal Saline With 40 Meq Kcl) 1,000 mls @ 150 mls/hr IV ASDIRECTED KISHA Last Admin: 10/18/18 06:52 Dose: 150 mls/hr Sodium Chloride (Saline Flush) 10 ml FLUSH ASDIRECTED PRN PRN Reason: Keep Vein Open Sodium Chloride (Saline Flush) 2.5 ml FLUSH ASDIRECTED PRN PRN Reason: Keep Vein Open Trazodone HCl (Trazodone) 50 mg PO ASDIRECTED PRN PRN Reason: Pain Last Admin: 10/17/18 22:07 Dose: 50 mg Discontinued Medications Potassium Chloride (Klor-Con M20) 80 meq PO ONETIME ONE Stop: 10/17/18 16:18 Last Admin: 10/17/18 16:33 Dose: 80 meq Potassium Chloride (Klor-Con M20) 40 meq PO ONETIME ONE Stop: 10/17/18 22:36 Last Admin: 10/17/18 22:46 Dose: 40 meq <Noel Hawkins - Last Filed: 10/19/18 23:20> - Patient Data Vitals - Most Recent: Last Vital Signs Temp 35.8 C 10/18/18 08:02 Pulse 80 10/18/18 08:02 Resp 15 10/18/18 08:02 BP 110/59 L 10/18/18 08:02 Pulse Ox 94 L 10/18/18 08:02 Med Orders - Current: Current Medications Discontinued Medications Hydrocodone Bitart/Acetaminophen (Destrehan 325-5 Mg) 1 tab PO BID PRN PRN Reason: Pain Last Admin: 10/17/18 22:01 Dose: 1 tab Amoxicillin/Clavulanate Potassium (Augmentin 875 Mg/125 Mg) 1 tab PO BID KISHA Last Admin: 10/18/18 09:01 Dose: 1 tab Potassium Chloride/Sodium Chloride (Normal Saline With 40 Meq Kcl) 1,000 mls @ 150 mls/hr IV ASDIRECTED KISHA Last Admin: 10/18/18 06:52 Dose: 150 mls/hr Potassium Chloride (Klor-Con M20) 80 meq PO ONETIME ONE Stop: 10/17/18 16:18 Last Admin: 10/17/18 16:33 Dose: 80 meq Potassium Chloride (Klor-Con M20) 40 meq PO ONETIME ONE Stop: 10/17/18 22:36 Last Admin: 10/17/18 22:46 Dose: 40 meq Sodium Chloride (Saline Flush) 10 ml FLUSH ASDIRECTED PRN PRN Reason: Keep Vein Open Sodium Chloride (Saline Flush) 2.5 ml FLUSH ASDIRECTED PRN PRN Reason: Keep Vein Open Trazodone HCl (Trazodone) 50 mg PO ASDIRECTED PRN PRN Reason: Pain Last Admin: 10/17/18 22:07 Dose: 50 mg - Free Text/Narrative Note: I have seen and examined the patient. I have discussed findings and treatment plan with the resident. I agree with the assessment and plan outlined in the following resident's note.
[2018-10-18] MEDS: Amoxicillin/Clavulanate K 875-125 MG Tab PO SCH (09:01)
== END 2018-10-18 10:57 | disposition home or self-care (01) ==
LOC: MW.ED 15:18 → MW.MS 16:48
PROVIDERS: ADMIT Internal Medicine; ATTEND Internal Medicine
DX: E87.6 Hypokalemia (principal); I10 Essential (primary) hypertension; G89.29 Other chronic pain; M54.9 Dorsalgia, unspecified; Z79.899 Other long term (current) drug therapy
CPT/HCPCS: 36415; 80048; 80053; 83735; 84132; 85025; 93005; 96365; 96366; 99284; A9270; G0378; J3480; 99283

== ENCOUNTER 2019-01-13 14:34 | Emergency (ER) | payer MEDICARE, OTHER ==
--- NOTE | 2019-01-13 15:17 | EDM.PDOC ---
ED HPI GENERAL MEDICAL PROBLEM - General Chief Complaint: Lower Extremity Injury/Pain Stated Complaint: BACK AND LEFT LEG PAIN Time Seen by Provider: 01/13/19 15:17 Source of Information: Reports: Patient - History of Present Illness INITIAL COMMENTS - FREE TEXT/NARRATIVE: HISTORY AND PHYSICAL: History of present illness: [Patient presents with pain behind her knee that began after eating dinner and arising from her seat, worsened by ambulation no fever nausea vomiting chills sweats no chest pain shortness breath headache dizziness palpitation no bowel or urine symptoms ] Review of systems: As per history of present illness and below otherwise all systems reviewed and negative. Past medical history: As per history of present illness and as reviewed below otherwise noncontributory. Surgical history: As per history of present illness and as reviewed below otherwise noncontributory. Social history: No reported history of drug or alcohol abuse. Family history: As per history of present illness and as reviewed below otherwise noncontributory. Physical exam: HEENT: Atraumatic, normocephalic, pupils reactive, negative for conjunctival pallor or scleral icterus, mucous membranes moist, throat clear, neck supple, nontender, trachea midline. Lungs: Clear to auscultation, breath sounds equal bilaterally, chest nontender. Heart: S1S2, regular, negative for clicks, rubs, or JVD. Abdomen: Soft, nondistended, nontender. Negative for masses or hepatosplenomegaly. Negative for costovertebral tenderness. Pelvis: Stable nontender. Genitourinary: Deferred. Rectal: Deferred. Extremities: Atraumatic, negative for cords or calf paiin on the right she does have calf pain, and positive on the left Neurovascular unremarkable. Neuro: Awake, alert, oriented. Cranial nerves II through XII unremarkable. Cerebellum unremarkable. Motor and sensory unremarkable throughout. Exam nonfocal. Diagnostics: [Venous Doppler ultrasound on the left ] Therapeutics: [Rest ice ibuprofen Patient has history of recent back surgery and has Valium and [place] at her disposal l ] Impression: [Muscle spasm ] Definitive disposition and diagnosis as appropriate pending reevaluation and review of above. left leg Pain Score (Numeric/FACES): 7 - Related Data Allergies Allergy/AdvReac Type Severity Reaction Status Date / Time animal dander Allergy Sneezing Verified 10/17/18 15:26 perfume Allergy Sneezing Verified 10/17/18 15:26 Home Meds: Home Meds Acetaminophen/HYDROcodone [[place] 325-5 MG] 1 tab PO BID PRN 10/17/18 [History] Berberine Hcl 1,800 mg PO BID 10/17/18 [History] Estrogen,Con/M-Progest Acet [Prempro 0.3 MG-1.5 MG] 0.5 tab PO DAILY 10/17/18 [ History] Oxybutynin Chloride [Oxybutynin Chloride ER] 5 mg PO DAILY 10/17/18 [History] Rosuvastatin [Crestor] 40 mg PO DAILY 10/17/18 [History] traZODone HCl [Trazodone HCl] 50 mg PO BEDTIME 10/17/18 [History] Lisinopril 10 mg PO DAILY 14 Days #14 tablet 10/18/18 [Rx] Aspirin 81 mg PO DAILY 01/13/19 [History] Magnesium 250 mg PO DAILY 01/13/19 [History] Past Medical History HEENT History: Reports: None Cardiovascular History: Reports: High Cholesterol, Hypertension Respiratory History: Reports: None Gastrointestinal History: Reports: None Genitourinary History: Reports: None [employer] History: Reports: Musculoskeletal History: Reports: Back Pain, Chronic Neurological History: Reports: None, Neuropathy, Peripheral Psychiatric History: Reports: Anxiety, Depression Endocrine/Metabolic History: Reports: None Hematologic History: Reports: None Immunologic History: Reports: None Oncologic (Cancer) History: Reports: None Dermatologic History: Reports: None - Infectious Disease History Infectious Disease History: Reports: Mumps - Past Surgical History Head Surgeries/Procedures: Reports: None HEENT Surgical History: Reports: None Cardiovascular Surgical History: Reports: None Respiratory Surgical History: Reports: None GI Surgical History: Reports: None Female Surgical History: Reports: None, Tubal Ligation Endocrine Surgical History: Reports: None Neurological Surgical History: Reports: None Other Musculoskeletal Surgeries/Procedures:: Back surgery Oncologic Surgical History: Reports: None Dermatological Surgical History: Reports: None Social & Family History - Family History Family Medical History: Noncontributory - Tobacco Use Smoking Status *Q: Former Smoker Used Tobacco, but Quit: Yes Month/Year Tobacco Last Used: 1997 - Caffeine Use Caffeine Use: Reports: Coffee, Tea - Recreational Drug Use Recreational Drug Use: No Review of Systems - Review of Systems Review Of Systems: See Below ED EXAM, GENERAL - Physical Exam Exam: See Below Course - Vital Signs Last Recorded V/S: Last Vital Signs Temp 96.7 F 01/13/19 14:58 Pulse 76 01/13/19 14:58 Resp 18 01/13/19 14:58 BP 131/63 01/13/19 14:58 Pulse Ox 95 01/13/19 14:58 - Orders/Labs/Meds Labs: Laboratory Tests 01/13/19 01/13/19 01/13/19 Range/Units 15:24 15:24 15:24 WBC 9.04 (4.0-11.0) K/uL RBC 4.63 (4.30-5.90) M/uL Hgb 13.8 (12.0-16.0) g/dL Hct 41.9 (36.0-46.0) % MCV 90.5 (80.0-98.0) fL MCH 29.8 (27.0-32.0) pg MCHC 32.9 (31.0-37.0) g/dL RDW Std Deviation 42.8 (28.0-62.0) fl RDW Coeff of [place] 13 (11.0-15.0) % Plt Count 221 (150-400) K/uL MPV 10.90 (7.40-12.00) fL Neut % (Auto) 71.5 (48.0-80.0) % Lymph % (Auto) 20.0 (16.0-40.0) % [place] % (Auto) 5.4 (0.0-15.0) % Eos % (Auto) 2.7 (0.0-7.0) % Baso % (Auto) 0.4 (0.0-1.5) % Neut # (Auto) 6.5 H (1.4-5.7) K/uL Lymph # (Auto) 1.8 (0.6-2.4) K/uL [place] # (Auto) 0.5 (0.0-0.8) K/uL Eos # (Auto) 0.2 (0.0-0.7) K/uL Baso # (Auto) 0.0 (0.0-0.1) K/uL Nucleated RBC % 0.0 /100WBC Nucleated RBCs # 0 K/uL INR 1.05 Sodium 144 (136-145) mmol/L Potassium 3.9 (3.5-5.1) mmol/L Chloride 108 H (98-107) mmol/L Carbon Dioxide 25.9 (21.0-32.0) mmol/L BUN 13 (7.0-18.0) mg/dL Creatinine 0.7 (0.6-1.0) mg/dL Est Cr Clr Drug Dosing 66.42 mL/min Estimated GFR (MDRD) > 60.0 ml/min Glucose 101 (74-106) mg/dL Calcium 10.0 (8.5-10.1) mg/dL Total Bilirubin 0.3 (0.2-1.0) mg/dL AST 15 (15-37) IU/L ALT 25 (14-63) IU/L Alkaline Phosphatase 104 (46-116) U/L Total Protein 7.2 (6.4-8.2) g/dL Albumin 3.8 (3.4-5.0) g/dL Globulin 3.4 (2.6-4.0) g/dL Albumin/Globulin Ratio 1.1 (0.9-1.6) Departure - Departure Time of Disposition: 16:46 Disposition: Home, Self-Care 01 Condition: Good Clinical Impression: Muscle spasm - Discharge Information Referrals: Jovana Reyes NP [Primary Care Provider] - Forms: ED Department Discharge Additional Instructions: The following information is given to patients seen in the emergency department who are being discharged to home. This information is to outline your options for follow-up care. We provide all patients seen in our emergency department with a follow-up referral. The need for follow-up, as well as the timing and circumstances, are variable depending upon the specifics of your emergency department visit. If you don't have a primary care physician on staff, we will provide you with a referral. We always advise you to contact your personal physician following an emergency department visit to inform them of the circumstance of the visit and for follow-up with them and/or the need for any referrals to a consulting specialist. The emergency department will also refer you to a specialist when appropriate. This referral assures that you have the opportunity for follow-up care with a specialist. All of these measure are taken in an effort to provide you with optimal care, which includes your follow-up. Under all circumstances we always encourage you to contact your private physician who remains a resource for coordinating your care. When calling for follow-up care, please make the office aware that this follow-up is from your recent emergency room visit. If for any reason you are refused follow-up, please contact the [facility] emergency department at and asked to speak to the emergency department charge nurse.
[2019-01-13 16:00] LABS: CHLORIDE,CL 108 mmol/L (98-107); SODIUM,NA 144 mmol/L (136-145)
--- NOTE | 2019-01-13 16:31 | US ---
INDICATION: Acute posterior left thigh and knee pain. COMPARISON: None available. FINDINGS: Ultrasound of the venous drainage of the left lower extremity shows no evidence of deep venous thrombosis. There is normal antegrade flow from the posterior tibial and peroneal veins superiorly through the common femoral vein. There is normal augmentation and compressibility of the veins. IMPRESSION: No evidence of deep venous thrombosis on ultrasound examination of the left lower extremity. Dictated by Dinesh Weston MD @ Jan 13 2019 4:28PM Signed by Dr. Dinesh Weston @ Jan 13 2019 4:29PM
[2019-01-13 20:34] VITALS: BP 121/65
== END 2019-01-13 17:01 | disposition home or self-care (01) ==
LOC: MW.ED 14:34
DX: M62.838 Other muscle spasm (principal); I10 Essential (primary) hypertension; E78.00 Pure hypercholesterolemia, unspecified; F41.9 Anxiety disorder, unspecified; F32.9 Major depressive disorder, single episode, unspecified; Z79.82 Long term (current) use of aspirin; Z79.899 Other long term (current) drug therapy; Z91.09 Other allergy status, other than to drugs and biological substances; Z87.891 Personal history of nicotine dependence
CPT/HCPCS: 36415; 80053; 85025; 85610; 93971-26-LT; 93971-LT; 99283; 99284-25

== ENCOUNTER 2019-07-18 16:56 | Emergency (ER) | payer MEDICARE, OTHER ==
[2019-07-18 17:04] VITALS: BP 136/79; PULSE 107
--- NOTE | 2019-07-18 17:07 | EDM.PDOC ---
ED HPI GENERAL MEDICAL PROBLEM - General Chief Complaint: Gastrointestinal Problem Stated Complaint: STOMACH Time Seen by Provider: 07/18/19 17:01 - History of Present Illness INITIAL COMMENTS - FREE TEXT/NARRATIVE: HISTORY AND PHYSICAL: History of present illness: Patient is a 69-year-old white female who is status post left knee replacement from July 10 who presents with concern of constipation she's had similar episodes in the past with narcotic analgesics related to surgery and is currently on Percocet she denies fever chills and states her postoperative course related to her knee directly is otherwise unremarkable Review of systems: As per history of present illness and below otherwise all systems reviewed and negative. Past medical history: As per history of present illness and as reviewed below otherwise noncontributory. Surgical history: As per history of present illness and as reviewed below otherwise noncontributory. Social history: No reported history of drug or alcohol abuse. Family history: As per history of present illness and as reviewed below otherwise noncontributory. Physical exam: HEENT: Atraumatic, normocephalic, pupils reactive, negative for conjunctival pallor or scleral icterus, mucous membranes moist, throat clear, neck supple, nontender, trachea midline. Lungs: Clear to auscultation, breath sounds equal bilaterally, chest nontender. Heart: S1S2, regular, negative for clicks, rubs, or JVD. Abdomen: Soft, nondistended, mild nonlocalized tenderness. Negative for masses or hepatosplenomegaly. Negative for costovertebral tenderness. Pelvis: Stable nontender. Genitourinary: Deferred. Rectal: Deferred. Extremities: negative for cords or calf pain. Neurovascular unremarkable. Neuro: Awake, alert, oriented. Cranial nerves II through XII unremarkable. Cerebellum unremarkable. Motor and sensory unremarkable throughout. Exam nonfocal. Diagnostics: None Therapeutics: Enema Impression: #1 postoperative constipation # 2 status post left knee replacement 07/10/19 Definitive disposition and diagnosis as appropriate pending reevaluation and review of above. - Related Data Allergies Allergy/AdvReac Type Severity Reaction Status Date / Time animal dander Allergy Sneezing Verified 07/18/19 17:04 perfume Allergy Sneezing Verified 07/18/19 17:04 Home Meds: Home Meds Berberine Hcl 1,800 mg PO BID 10/17/18 [History] Estrogen,Con/M-Progest Acet [Prempro 0.3 MG-1.5 MG] 0.5 tab PO DAILY 10/17/18 [ History] Oxybutynin Chloride [Oxybutynin Chloride ER] 5 mg PO DAILY 10/17/18 [History] Rosuvastatin [Crestor] 40 mg PO DAILY 10/17/18 [History] traZODone HCl [Trazodone HCl] 50 mg PO BEDTIME 10/17/18 [History] Lisinopril 10 mg PO DAILY 14 Days #14 tablet 10/18/18 [Rx] Aspirin 81 mg PO DAILY 01/13/19 [History] Magnesium 250 mg PO DAILY 01/13/19 [History] oxyCODONE HCl/Acetaminophen [Oxycodone-Acetaminophen 5-325] 1 tab PO ASDIRECTED PRN 07/18/19 [History] Past Medical History HEENT History: Reports: None Cardiovascular History: Reports: High Cholesterol, Hypertension Respiratory History: Reports: None Gastrointestinal History: Reports: None Genitourinary History: Reports: None LAST TURNER History: Reports: Musculoskeletal History: Reports: Back Pain, Chronic Neurological History: Reports: None, Neuropathy, Peripheral Psychiatric History: Reports: Anxiety, Depression Endocrine/Metabolic History: Reports: None Hematologic History: Reports: None Immunologic History: Reports: None Oncologic (Cancer) History: Reports: None Dermatologic History: Reports: None - Infectious Disease History Infectious Disease History: Reports: Mumps - Past Surgical History Head Surgeries/Procedures: Reports: None HEENT Surgical History: Reports: None Cardiovascular Surgical History: Reports: None Respiratory Surgical History: Reports: None GI Surgical History: Reports: None Female Surgical History: Reports: None, Tubal Ligation Endocrine Surgical History: Reports: None Neurological Surgical History: Reports: None Other Musculoskeletal Surgeries/Procedures:: Back surgery Oncologic Surgical History: Reports: None Dermatological Surgical History: Reports: None Social & Family History - Family History Family Medical History: Noncontributory - Caffeine Use Caffeine Use: Reports: Coffee, Tea ED ROS GENERAL - Review of Systems Review Of Systems: ROS reveals no pertinent complaints other than HPI. ED EXAM, GENERAL - Physical Exam Exam: See Below (See dictation) Course - Vital Signs Text/Narrative:: Patient's emergency department course was remarkable for large bowel movement prior to enema patient is resolution of her symptoms and is requesting discharge Last Recorded V/S: Last Vital Signs Temp 36.1 C 07/18/19 17:02 Pulse 107 H 07/18/19 17:02 Resp 16 07/18/19 17:02 BP 136/79 07/18/19 17:02 Pulse Ox 96 07/18/19 17:02 - Orders/Labs/Meds Orders: Active Orders 24 hr Category Date Time Status Enema [RC] ASDIRECTED Care 07/18/19 17:09 Active Departure - Departure Time of Disposition: 17:40 Disposition: Home, Self-Care 01 Condition: Good Clinical Impression: Constipation - Discharge Information Referrals: Jovana Reyes NP [Primary Care Provider] - Forms: ED Department Discharge Additional Instructions: The following information is given to patients seen in the emergency department who are being discharged to home. This information is to outline your options for follow-up care. We provide all patients seen in our emergency department with a follow-up referral. The need for follow-up, as well as the timing and circumstances, are variable depending upon the specifics of your emergency department visit. If you don't have a primary care physician on staff, we will provide you with a referral. We always advise you to contact your personal physician following an emergency department visit to inform them of the circumstance of the visit and for follow-up with them and/or the need for any referrals to a consulting specialist. The emergency department will also refer you to a specialist when appropriate. This referral assures that you have the opportunity for followup care with a specialist. All of these measure are taken in an effort to provide you with optimal care, which includes your followup. Under all circumstances we always encourage you to contact your private physician who remains a resource for coordinating your care. When calling for followup care, please make the office aware that this follow-up is from your recent emergency room visit. If for any reason you are refused follow-up, please contact the [facility] emergency department at and asked to speak to the emergency department charge nurse. Continue Colace push fluids follow up primary medical doctor return as needed as discussed - My Orders Last 24 Hours: My Active Orders 07/18/19 17:09 Enema [RC] ASDIRECTED - Assessment/Plan Last 24 Hours: My Active Orders 07/18/19 17:09 Enema [RC] ASDIRECTED
== END 2019-07-18 18:09 | disposition home or self-care (01) ==
LOC: MW.ED 16:56
DX: K59.00 Constipation, unspecified (principal); E78.00 Pure hypercholesterolemia, unspecified; I10 Essential (primary) hypertension; F32.9 Major depressive disorder, single episode, unspecified; F41.9 Anxiety disorder, unspecified; Z96.652 Presence of left artificial knee joint; Z98.890 Other specified postprocedural states; Z79.899 Other long term (current) drug therapy; Z91.09 Other allergy status, other than to drugs and biological substances; Z79.82 Long term (current) use of aspirin
CPT/HCPCS: 99283

== ENCOUNTER 2020-06-27 17:06 | Emergency (ER) | payer MEDICARE, OTHER ==
--- NOTE | 2020-06-27 17:34 | EDM.PDOC ---
ED HPI GENERAL MEDICAL PROBLEM - General Chief Complaint: Flank Pain Stated Complaint: BACK PAIN Time Seen by Provider: 06/27/20 17:15 Source of Information: Reports: Patient History Limitations: Reports: No Limitations - History of Present Illness INITIAL COMMENTS - FREE TEXT/NARRATIVE: HISTORY AND PHYSICAL: History of present illness: Patient is a 70-year-old female who presents to the ED today with concern of right-sided low back/hip pain that started approximately 30 minutes prior to arrival to the ED. Patient states that it does feel like a muscle spasm. Upon my exam, patient states the pain went away immediately and she has no longer having pain on my exam. Patient denies trauma or injury. Patient denies loss or retention of bowel bladder function or saddle anesthesia. Patient denies fever, chills, chest pain, shortness of breath, or cough. Denies headache, neck stiff ness, change in vision, syncope, or near syncope. Denies nausea, vomiting, abdominal pain, diarrhea, constipation, or dysuria. Has not noted any blood in urine or stool. Patient has been eating and drinking appropriately. Review of systems: As per history of present illness and below otherwise all systems reviewed and negative. Past medical history: As per history of present illness and as reviewed below otherwise noncontributory. Surgical history: As per history of present illness and as reviewed below otherwise noncontributory. Social history: See social history for further information Family history: As per history of present illness and as reviewed below otherwise n oncontributory. Physical exam: General: Patient is alert, oriented, and in no acute distress. Patient sitting comfortably on exam table. HEENT: Atraumatic, normocephalic, pupils equal and reactive bilaterally, negative for conjunctival pallor or scleral icterus, mucous membranes moist, TMs normal bilaterally, throat clear, neck supple, nontender, trachea midline. No drooling or trismus noted. No meningeal signs. No hot potato voice noted. Lungs: Clear to auscultation, breath sounds equal bilaterally, chest nontender. Heart: S1S2, regular rate and rhythm without overt murmur Abdomen: Soft, nondistended, nontender. Negative for masses or hepatosplenomegaly. Negative for costovertebral tenderness. Pelvis: Stable nontender. Genitourinary: Deferred. Rectal: Deferred. Skin: Intact, warm, dry. No lesions or rashes noted. Extremities: No obvious deformity of the complete spine. No step-offs, crepitus, or point tenderness to palpation of the complete spine. Heel/toe gait intact. Patellar reflexes intact bilaterally. Able to ambulate into the ED today without difficulty. Otherwise, atraumatic, negative for cords or calf pain. Neurovascular unremarkable. Neuro: Awake, alert, oriented. Cranial nerves II through XII unremarkable. Cerebellum unremarkable. Motor and sensory unremarkable throughout. Exam nonfocal. Notes: I did call and speak to Dr. Pritchett, urologist, and thoroughly discussed patient's case. Discussed importance for follow-up with the urologist. Signs and symptoms that would prompt return to the ED thoroughly discussed with patient. Voices understanding and is agreeable to plan of care. Denies any further questions or concerns at this time. Diagnostics: UA w cult, CBC, CMP, Lipase, Abd/pelvic w cont. Therapeutics: Norflex (Toradol offered but patient declines) Prescription: Flomax, [place] No. 15, ciprofloxacin Impression: Ureterolithiasis Plan: 1. Take medication as prescribed. You can also alternate ibuprofen and Tylenol as directed for pain and discomfort. 2. Follow-up with the urologist, Dr. Pritchett on Wednesday as discussed. Call tomorrow to establish an appointment time. The number has been provided above for you to call and set up an appointment time for Wednesday. 3. Return to the ED as needed and as discussed. Definitive disposition and diagnosis as appropriate pending reevaluation and review of above. - Related Data Allergies Allergy/AdvReac Type Severity Reaction Status Date / Time animal dander Allergy Sneezing Verified 06/27/20 17:16 perfume Allergy Sneezing Verified 06/27/20 17:16 Home Meds: Home Meds Berberine Hcl 1,800 mg PO BID 10/17/18 [History] Estrogen,Con/M-Progest Acet [Prempro 0.3 MG-1.5 MG] 0.5 tab PO DAILY 10/17/18 [History] Oxybutynin Chloride [Oxybutynin Chloride ER] 5 mg PO DAILY 10/17/18 [History] Rosuvastatin [Crestor] 40 mg PO DAILY 10/17/18 [History] traZODone HCl [Trazodone HCl] 50 mg PO BEDTIME 10/17/18 [History] Lisinopril 10 mg PO DAILY 14 Days #14 tablet 10/18/18 [Rx] Aspirin 81 mg PO DAILY 01/13/19 [History] Magnesium 250 mg PO DAILY 01/13/19 [History] Acetaminophen/HYDROcodone [[place] 325-5 MG] 1 tab PO Q6H #15 tablet 06/27/20 [Rx] Alpha Lipoic Acid 600 mg PO DAILY 06/27/20 [History] Ciprofloxacin [Ciprofloxacin HCl] 500 mg PO BID 5 Days #10 tab 06/27/20 [Rx] Cyanocobalamin (Vitamin B12) [Vitamin B12] 1,000 mg PO DAILY 06/27/20 [History] Diclofenac Sodium 75 mg PO DAILY 06/27/20 [History] Ondansetron [Zofran ODT] 4 mg PO Q6H PRN #8 tab.dis 06/27/20 [Rx] Pumpkin Seed Extract/Soy Germ [Azo Bladder Control Capsule] 300 mg PO DAILY 06/27/20 [History] Tamsulosin HCl [Flomax] 0.4 mg PO DAILY #5 cap.er.24h 06/27/20 [Rx] Past Medical History HEENT History: Reports: None Cardiovascular History: Reports: High Cholesterol, Hypertension Respiratory History: Reports: None Gastrointestinal History: Reports: None Genitourinary History: Reports: None DOUGHMAKER History: Reports: Musculoskeletal History: Reports: Back Pain, Chronic Neurological History: Reports: None, Neuropathy, Peripheral Psychiatric History: Reports: Anxiety, Depression Endocrine/Metabolic History: Reports: None Hematologic History: Reports: None Immunologic History: Reports: None Oncologic (Cancer) History: Reports: None Dermatologic History: Reports: None - Infectious Disease History Infectious Disease History: Reports: Measles - Past Surgical History Head Surgeries/Procedures: Reports: None HEENT Surgical History: Reports: None Cardiovascular Surgical History: Reports: None Respiratory Surgical History: Reports: None GI Surgical History: Reports: None Female Surgical History: Reports: None, Tubal Ligation Endocrine Surgical History: Reports: None Neurological Surgical History: Reports: None Other Musculoskeletal Surgeries/Procedures:: Back surgery Oncologic Surgical History: Reports: None Dermatological Surgical History: Reports: None Social & Family History - Family History Family Medical History: Noncontributory - Tobacco Use Smoking Status *Q: Former Smoker Used Tobacco, but Quit: Yes Month/Year Tobacco Last Used: 1997 - Caffeine Use Caffeine Use: Reports: None - Recreational Drug Use Recreational Drug Use: No ED ROS GENERAL - Review of Systems Review Of Systems: Comprehensive ROS is negative, except as noted in HPI. ED EXAM, GENERAL - Physical Exam Exam: See Below (See dictation) Course - Vital Signs Last Recorded V/S: Last Vital Signs Temp 97.7 F 06/27/20 17:21 Pulse 78 06/27/20 20:43 Resp 18 06/27/20 20:43 BP 142/70 H 06/27/20 20:43 Pulse Ox 98 06/27/20 20:43 - Orders/Labs/Meds Orders: Active Orders 24 hr Category Date Time Status CULTURE URINE [RM] Stat Lab 06/27/20 17:25 Received Labs: Laboratory Tests 06/27/20 06/27/20 06/27/20 Range/Units 17:25 19:28 19:28 WBC 8.40 (4.0-11.0) K/uL RBC 4.70 (4.30-5.90) M/uL Hgb 13.8 (12.0-16.0) g/dL Hct 43.6 (36.0-46.0) % MCV 92.8 (80.0-98.0) fL MCH 29.4 (27.0-32.0) pg MCHC 31.7 (31.0-37.0) g/dL RDW Std Deviation 44.3 (28.0-62.0) fl RDW Coeff of Kanu 13 (11.0-15.0) % Plt Count 203 (150-400) K/uL MPV 10.90 (7.40-12.00) fL Neut % (Auto) 73.4 (48.0-80.0) % Lymph % (Auto) 18.0 (16.0-40.0) % [place] % (Auto) 6.1 (0.0-15.0) % Eos % (Auto) 2.1 (0.0-7.0) % Baso % (Auto) 0.4 (0.0-1.5) % Neut # (Auto) 6.2 H (1.4-5.7) K/uL Lymph # (Auto) 1.5 (0.6-2.4) K/uL [place] # (Auto) 0.5 (0.0-0.8) K/uL Eos # (Auto) 0.2 (0.0-0.7) K/uL Baso # (Auto) 0.0 (0.0-0.1) K/uL Nucleated RBC % 0.0 /100WBC Nucleated RBCs # 0 K/uL Sodium 143 (136-145) mmol/L Potassium 4.1 (3.5-5.1) mmol/L Chloride 107 (98-107) mmol/L Carbon Dioxide 25.9 (21.0-32.0) mmol/L BUN 17 (7.0-18.0) mg/dL Creatinine 1.0 (0.6-1.0) mg/dL Est Cr Clr Drug Dosing 45.20 mL/min Estimated GFR (MDRD) 54.8 ml/min Glucose 88 (74-106) mg/dL Calcium 9.8 (8.5-10.1) mg/dL Total Bilirubin 0.5 (0.2-1.0) mg/dL AST 22 (15-37) IU/L ALT 39 (14-63) IU/L Alkaline Phosphatase 132 H (46-116) U/L Total Protein 6.7 (6.4-8.2) g/dL Albumin 4.0 (3.4-5.0) g/dL Globulin 2.7 (2.6-4.0) g/dL Albumin/Globulin Ratio 1.5 (0.9-1.6) Lipase 287 (73-393) U/L Urine Color YELLOW Urine Appearance SLT CLOUDY Urine pH 5.5 (5.0-8.0) Ur Specific [place] >= 1.030 (1.001-1.035) Urine Protein 100 H (NEGATIVE) mg/dL Urine Glucose (UA) NEGATIVE (NEGATIVE) mg/dL Urine Ketones TRACE H (NEGATIVE) mg/dL Urine Occult Blood LARGE H (NEGATIVE) Urine Nitrite NEGATIVE (NEGATIVE) Urine Bilirubin NEGATIVE (NEGATIVE) Urine Urobilinogen 0.2 (<2.0) EU/dL Ur Leukocyte Esterase NEGATIVE (NEGATIVE) Urine RBC 10-15 (0-2/HPF) Urine WBC 0-3 (0-5/HPF) Ur Epithelial Cells FEW (NONE-FEW) Calcium Oxalate Crystal FEW (NEGATIVE) Urine Bacteria 3+ H (NEGATIVE) Meds: Medications Discontinued Medications Generic Name Dose Route Start Last Admin Trade Name Freq PRN Reason Stop Dose Admin Orphenadrine Citrate 60 mg 06/27/20 18:15 06/27/20 18:41 Norflex IM 06/27/20 18:16 60 mg ONETIME ONE Administration Departure - Departure Time of Disposition: 20:26 Disposition: Home, Self-Care 01 Clinical Impression: Ureterolithiasis - Discharge Information Prescriptions: Ciprofloxacin [Ciprofloxacin HCl] 500 mg PO BID 5 Days #10 tab Tamsulosin HCl [Flomax] 0.4 mg PO DAILY #5 cap.er.24h Acetaminophen/HYDROcodone [[place] 325-5 MG] 1 tab PO Q6H #15 tablet Ondansetron [Zofran ODT] 4 mg PO Q6H PRN #8 tab.dis PRN Reason: Nausea/Vomiting Instructions: Kidney Stones, [id number] Referrals: Tamiko Villalba MD [Primary Care Provider] - Forms: ED Department Discharge Additional Instructions: The following information is given to patients seen in the emergency department who are being discharged to home. This information is to outline your options for follow-up care. We provide all patients seen in our emergency department with a follow-up referral. The need for follow-up, as well as the timing and circumstances, are variable depending upon the specifics of your emergency department visit. If you don't have a primary care physician on staff, we will provide you with a referral. We always advise you to contact your personal physician following an emergency department visit to inform them of the circumstance of the visit and for follow-up with them and/or the need for any referrals to a consulting specialist. The emergency department will also refer you to a specialist when appropriate. This referral assures that you have the opportunity for follow-up care with a specialist. All of these measure are taken in an effort to provide you with optimal care, which includes your follow-up. Under all circumstances we always encourage you to contact your private physician who remains a resource for coordinating your care. When calling for follow-up care, please make the office aware that this follow-up is from your recent emergency room visit. If for any reason you are refused follow-up, please contact the [facility] Emergency Department at and asked to speak to the emergency department charge nurse. [facility] [address] [place], [place] [address], [place] [address] [facility] [address] [place] [address] [facility] - Urology, Dr. Pritchett [address] [place] [address] 1. Take medication as prescribed. You can also alternate ibuprofen and Tylenol as directed for pain and discomfort. 2. Follow-up with the urologist, Dr. Pritchett on Wednesday as discussed. Call tomorrow to establish an appointment time. The number has been provided above for you to call and set up an appointment time for Wednesday. 3. Return to the ED as needed and as discussed. Sepsis Event Note (ED) - Evaluation Sepsis Screening Result: No Definite Risk - Focused Exam Vital Signs: Vital Signs Temp Pulse Resp BP Pulse Ox 06/27/20 20:43 78 18 142/70 H 98 06/27/20 18:44 58 L 16 137/69 97 06/27/20 17:21 97.7 F 64 16 134/64 95 - My Orders Last 24 Hours: My Active Orders 06/27/20 17:25 CULTURE URINE [RM] Stat - Assessment/Plan Last 24 Hours: My Active Orders 06/27/20 17:25 CULTURE URINE [RM] Stat
[2020-06-27] MEDS ORDERED: Orphenadrine 60 MG/2 ML Inj IM ONE (18:15)
--- NOTE | 2020-06-27 19:56 | CT ---
CT abdomen and pelvis Technique: Multiple axial sections were obtained from above the dome of the diaphragm inferiorly through the pubic symphysis. Intravenous and oral contrast was not utilized. Comparison: No prior abdominal imaging is available. Findings: Multiple cysts are noted within the left kidney. Largest cyst within the upper pole measuring 4.8 cm. Left kidney appears within normal limits. No abnormal calcifications within the kidneys are seen. Very small calcification may be present at the right UVJ measuring about 2-3 mm. This may represent a very small partially obstructing distal right ureteral stone. Other findings: Visualized lung bases shows thick area of density within the left base most likely due to thick area of atelectasis. Noncontrast appearance of the liver and spleen shows no focal abnormality. Adrenal glands show no nodule. Pancreas shows no abnormality. Gallbladder contains no calcified gallstones. Aorta shows no aneurysm with atherosclerotic calcification. No retroperitoneal adenopathy or mesenteric abnormalities are seen. Appendix is seen which is normal in size. No pelvic mass or adenopathy is seen. Diverticuli are noted within the sigmoid colon and descending colon without findings of diverticulitis. Bone window settings were reviewed which shows degenerative change within the spine. No acute osseous finding is appreciated. Impression: 1. Cysts within the right kidney. 2. Possible minimal calcification measuring 2-3 mm within the distal right ureter at the UVJ representing partially obstructing calculus. 3. Thick area of atelectasis is felt to be present within the left lung base. 4. Other findings as noted above which are nonacute. Diagnostic code #3 Study was dictated in MDT
[2020-06-27 19:57] LABS: CARBON DIOXIDE,CO2 25.9 mmol/L (21.0-32.0); POTASSIUM,K 4.1 mmol/L (3.5-5.1)
[2020-06-27 20:43] VITALS: BP 142/70; PULSE 78
== END 2020-06-27 20:43 | disposition home or self-care (01) ==
LOC: MW.ED 17:06
DX: N20.1 Calculus of ureter (principal); I10 Essential (primary) hypertension; E78.00 Pure hypercholesterolemia, unspecified; Z79.82 Long term (current) use of aspirin; Z91.09 Other allergy status, other than to drugs and biological substances; Z79.899 Other long term (current) drug therapy; Z98.51 Tubal ligation status; Z87.891 Personal history of nicotine dependence
CPT/HCPCS: 36415; 74176; 80053; 81001; 83690; 85025; 87086; 96372; 99284; J2360

== ENCOUNTER 2021-06-29 17:54 | Emergency (ER) | payer MEDICARE, OTHER | END 2021-06-29 20:14 | disposition left against medical advice (07) | LOC: MW.ED 17:54 | DX: Z53.21 Procedure and treatment not carried out due to patient leaving prior to being seen by health care provider (principal) ==

== ENCOUNTER 2023-02-12 15:29 | Inpatient (IN) | payer MEDICARE, OTHER ==
[2023-02-12] MEDS ORDERED: Lactated Ringers 1,000 ML IV ONE (15:55)
[2023-02-12 18:05] LABS: BASOPHILS PERCENT AUTO 0.1 % (0.0-1.5); EOSINOPHILS ABSOLUTE AUTO 0.1 K/uL (0.0-0.7); EOSINOPHILS PERCENT AUTO 1.1 % (0.0-7.0); HEMATOCRIT 42.4 % (36.0-46.0); HEMOGLOBIN 14.4 g/dL (12.0-16.0); LYMPHOCYTES ABSOLUTE AUTO 0.9 K/uL (0.6-2.4); LYMPHOCYTES PERCENT AUTO 12.6 % (16.0-40.0); MEAN CORPUSCULAR HEMOGLOBIN 29.4 pg (27.0-32.0); MEAN CORPUSCULAR VOLUME 86.7 fL (80.0-98.0); MONOCYTES ABSOLUTE AUTO 0.6 K/uL (0.0-0.8); MONOCYTES PERCENT AUTO 8.3 % (0.0-15.0); NEUTROPHILS ABSOLUTE AUTO 5.6 K/uL (1.4-5.7); NEUTROPHILS PERCENT AUTO 77.9 % (48.0-80.0); NRBC ABSOLUTE 0 K/uL; PLATELET COUNT,PLT 159 K/uL (150-400); RED BLOOD CELL COUNT 4.89 M/uL (4.30-5.90); WHITE BLOOD CELL COUNT,WBC 7.14 K/uL (4.0-11.0)
[2023-02-12 18:07] LABS: INR 0.99 (0.86-1.11); PTT,PARTIAL THROMBOPLSTIN TIME 31.8 SEC (23.9-30.7)
[2023-02-12 18:12] LABS: ALBUMIN 3.3 g/dL (3.4-5.0); BILIRUBIN TOTAL 0.4 mg/dL (0.2-1.0); CARBON DIOXIDE,CO2 18.6 mmol/L (21.0-32.0); CREATININE 7.8 mg/dL (0.6-1.0); EST CRCL DRUG DOSING (CG) 5.87 mL/min; MAGNESIUM 2.8 mg/dL (1.8-2.4); POTASSIUM,K 3.7 mmol/L (3.5-5.1); PROTEIN TOTAL,TP 6.5 g/dL (6.4-8.2)
[2023-02-12 18:49] LABS: APPEARANCE,URINE SLT CLOUDY; BILIRUBIN,URINE NEGATIVE (NEGATIVE); COLOR,URINE YELLOW; GLUCOSE,URINE NEGATIVE (NEGATIVE); KETONES,URINE NEGATIVE (NEGATIVE); LEUKOCYTE ESTERASE,URINE NEGATIVE (NEGATIVE); NITRITE,URINE NEGATIVE (NEGATIVE); OCCULT BLOOD,URINE SMALL (NEGATIVE); PROTEIN,URINE 100 mg/dL (NEGATIVE); UROBILINOGEN,URINE 0.2 EU/dL (<2.0)
[2023-02-12 19:03] LABS: BACTERIA,URINE 2+ (NEGATIVE); COARSE GRANULAR CASTS,URINE FEW (NEGATIVE); EPITHELIAL CELLS,URINE MANY (NONE-FEW); RBC,URINE 0-2 (0-2/HPF)
[2023-02-12] MEDS ORDERED: Lactated Ringers 1,000 ML IV SCH (19:15)
[2023-02-12] MEDS: Lactated Ringers 1,000 ML IV SCH (19:28)
[2023-02-13] MEDS: Heparin Sodium 5,000 Units/ML Vial SUBCUT SCH ×3 (01:26→20:50)
[2023-02-13] MEDS: Lactated Ringers 1,000 ML IV SCH (03:12)
[2023-02-13 06:17] LABS: HEMATOCRIT 38.9 % (36.0-46.0); MEAN CORPUSCULAR HEMOGLOBIN 28.3 pg (27.0-32.0); MEAN CORPUSCULAR HGB CONC 33.4 g/dL (31.0-37.0); MEAN CORPUSCULAR VOLUME 84.7 fL (80.0-98.0); RED BLOOD CELL COUNT 4.59 M/uL (4.30-5.90); WHITE BLOOD CELL COUNT,WBC 7.01 K/uL (4.0-11.0)
[2023-02-13 06:32] LABS: CALCIUM 8.3 mg/dL (8.5-10.1); CARBON DIOXIDE,CO2 15.3 mmol/L (21.0-32.0); CREATININE 7.4 mg/dL (0.6-1.0); EST CRCL DRUG DOSING (CG) 5.93 mL/min; POTASSIUM,K 3.5 mmol/L (3.5-5.1)
[2023-02-13] MEDS: Sodium Bicarbonate 650 MG Tab PO SCH ×2 (11:35→20:50)
[2023-02-13] MEDS: Sodium Bicarbonate 150 MEQ in Dextrose 5% in Water 1,000 ML IV SCH ×2 (12:05)
[2023-02-13] MEDS: Acetaminophen 325 MG Tab PO PRN (18:19)
[2023-02-13] MEDS ORDERED: Cyclobenzaprine 5 MG Tab PO ONE (22:11)
[2023-02-14] MEDS: Acetaminophen 325 MG Tab PO PRN (00:31)
[2023-02-14] MEDS: traZODone 50 MG Tab PO SCH ×2 (00:54→20:59)
[2023-02-14] MEDS: oxyCODONE 5 MG Tab PO PRN ×3 (00:54→20:59)
[2023-02-14] MEDS: Sodium Bicarbonate 150 MEQ in Dextrose 5% in Water 1,000 ML IV SCH ×2 (03:35)
[2023-02-14 05:54] LABS: BASOPHILS PERCENT AUTO 0.2 % (0.0-1.5); EOSINOPHILS ABSOLUTE AUTO 0.1 K/uL (0.0-0.7); EOSINOPHILS PERCENT AUTO 1.9 % (0.0-7.0); HEMATOCRIT 35.5 % (36.0-46.0); HEMOGLOBIN 12.4 g/dL (12.0-16.0); LYMPHOCYTES ABSOLUTE AUTO 0.8 K/uL (0.6-2.4); LYMPHOCYTES PERCENT AUTO 15.2 % (16.0-40.0); MEAN CORPUSCULAR HEMOGLOBIN 28.8 pg (27.0-32.0); MEAN CORPUSCULAR HGB CONC 34.9 g/dL (31.0-37.0); MEAN CORPUSCULAR VOLUME 82.6 fL (80.0-98.0); MONOCYTES ABSOLUTE AUTO 0.5 K/uL (0.0-0.8); MONOCYTES PERCENT AUTO 9.3 % (0.0-15.0); NEUTROPHILS PERCENT AUTO 73.4 % (48.0-80.0); NRBC ABSOLUTE 0 K/uL; PLATELET COUNT,PLT 125 K/uL (150-400); WHITE BLOOD CELL COUNT,WBC 5.38 K/uL (4.0-11.0)
[2023-02-14 06:12] LABS: CALCIUM 7.7 mg/dL (8.5-10.1); CARBON DIOXIDE,CO2 21.8 mmol/L (21.0-32.0); CREATININE 8.6 mg/dL (0.6-1.0); EST CRCL DRUG DOSING (CG) 5.11 mL/min
[2023-02-14] MEDS: Ondansetron 4 MG/2 ML SDV IVPUSH PRN ×2 (09:41→21:00)
[2023-02-14] MEDS: Sodium Bicarbonate 650 MG Tab PO SCH (09:41)
[2023-02-14] MEDS: Heparin Sodium 5,000 Units/ML Vial SUBCUT SCH ×2 (09:41→20:59)
[2023-02-14] MEDS ORDERED: Potassium Chloride 10 MEQ Tab.ER PO ONE (12:55)
[2023-02-14 16:36] LABS: CALCIUM 7.5 mg/dL (8.5-10.1); CARBON DIOXIDE,CO2 24.7 mmol/L (21.0-32.0); EST CRCL DRUG DOSING (CG) 4.88 mL/min; POTASSIUM,K 3.8 mmol/L (3.5-5.1)
[2023-02-14] MEDS: Sodium Chloride 0.9% 1,000 ML IV SCH (17:19)
[2023-02-15] MEDS: Ondansetron 4 MG/2 ML SDV IVPUSH PRN ×3 (02:30→21:07)
[2023-02-15 05:59] LABS: EOSINOPHILS ABSOLUTE AUTO 0.1 K/uL (0.0-0.7); HEMATOCRIT 36.6 % (36.0-46.0); HEMOGLOBIN 12.8 g/dL (12.0-16.0); LYMPHOCYTES ABSOLUTE AUTO 0.6 K/uL (0.6-2.4); MEAN CORPUSCULAR HEMOGLOBIN 29.1 pg (27.0-32.0); MEAN CORPUSCULAR VOLUME 83.2 fL (80.0-98.0); MONOCYTES ABSOLUTE AUTO 0.6 K/uL (0.0-0.8); MONOCYTES PERCENT AUTO 10.2 % (0.0-15.0); NEUTROPHILS PERCENT AUTO 78.8 % (48.0-80.0); NRBC ABSOLUTE 0 K/uL; PLATELET COUNT,PLT 120 K/uL (150-400); WHITE BLOOD CELL COUNT,WBC 6.29 K/uL (4.0-11.0)
[2023-02-15 06:10] LABS: CALCIUM 7.3 mg/dL (8.5-10.1); CARBON DIOXIDE,CO2 22.3 mmol/L (21.0-32.0); CREATININE 9.2 mg/dL (0.6-1.0); EST CRCL DRUG DOSING (CG) 4.77 mL/min
[2023-02-15] MEDS: Sodium Chloride 0.9% 1,000 ML IV SCH ×2 (06:31→19:57)
[2023-02-15] MEDS: Acetaminophen 325 MG Tab PO PRN (09:02)
[2023-02-15] MEDS: Heparin Sodium 5,000 Units/ML Vial SUBCUT SCH ×2 (09:03→21:08)
[2023-02-15] MEDS: oxyCODONE 5 MG Tab PO PRN ×2 (13:28→21:08)
[2023-02-15] MEDS: traZODone 50 MG Tab PO SCH (21:08)
[2023-02-16] MEDS: oxyCODONE 5 MG Tab PO PRN ×2 (03:32→20:50)
[2023-02-16 05:59] LABS: BASOPHILS PERCENT AUTO 0.2 % (0.0-1.5); EOSINOPHILS ABSOLUTE AUTO 0.1 K/uL (0.0-0.7); EOSINOPHILS PERCENT AUTO 0.9 % (0.0-7.0); HEMATOCRIT 36.9 % (36.0-46.0); HEMOGLOBIN 12.5 g/dL (12.0-16.0); LYMPHOCYTES ABSOLUTE AUTO 0.6 K/uL (0.6-2.4); LYMPHOCYTES PERCENT AUTO 8.8 % (16.0-40.0); MEAN CORPUSCULAR HEMOGLOBIN 28.5 pg (27.0-32.0); MEAN CORPUSCULAR HGB CONC 33.9 g/dL (31.0-37.0); MEAN CORPUSCULAR VOLUME 84.1 fL (80.0-98.0); MONOCYTES ABSOLUTE AUTO 0.6 K/uL (0.0-0.8); MONOCYTES PERCENT AUTO 9.2 % (0.0-15.0); NEUTROPHILS ABSOLUTE AUTO 5.2 K/uL (1.4-5.7); NEUTROPHILS PERCENT AUTO 80.9 % (48.0-80.0); NRBC ABSOLUTE 0 K/uL; PLATELET COUNT,PLT 139 K/uL (150-400); RED BLOOD CELL COUNT 4.39 M/uL (4.30-5.90); WHITE BLOOD CELL COUNT,WBC 6.38 K/uL (4.0-11.0)
[2023-02-16 06:19] LABS: CALCIUM 6.8 mg/dL (8.5-10.1); CARBON DIOXIDE,CO2 21.1 mmol/L (21.0-32.0); CREATININE 9.9 mg/dL (0.6-1.0); EST CRCL DRUG DOSING (CG) 4.44 mL/min; POTASSIUM,K 3.9 mmol/L (3.5-5.1)
[2023-02-16] MEDS: Heparin Sodium 5,000 Units/ML Vial SUBCUT SCH ×2 (09:07→20:53)
[2023-02-16] MEDS: Sodium Chloride 0.9% 1,000 ML IV SCH (11:27)
[2023-02-16] MEDS: Pantoprazole 40 MG in Sodium Chloride 0.9% 10 ML IVPUSH SCH (11:28)
[2023-02-16] MEDS: traZODone 50 MG Tab PO SCH (20:50)
[2023-02-16] MEDS: Ondansetron 4 MG/2 ML SDV IVPUSH PRN (20:52)
[2023-02-17] MEDS: Sodium Chloride 0.9% 1,000 ML IV SCH ×2 (00:32→14:22)
[2023-02-17 06:02] LABS: BASOPHILS PERCENT AUTO 0.2 % (0.0-1.5); EOSINOPHILS ABSOLUTE AUTO 0.1 K/uL (0.0-0.7); EOSINOPHILS PERCENT AUTO 2.6 % (0.0-7.0); HEMATOCRIT 35.4 % (36.0-46.0); HEMOGLOBIN 11.9 g/dL (12.0-16.0); LYMPHOCYTES ABSOLUTE AUTO 0.7 K/uL (0.6-2.4); LYMPHOCYTES PERCENT AUTO 13.5 % (16.0-40.0); MEAN CORPUSCULAR HEMOGLOBIN 28.2 pg (27.0-32.0); MEAN CORPUSCULAR HGB CONC 33.6 g/dL (31.0-37.0); MEAN CORPUSCULAR VOLUME 83.9 fL (80.0-98.0); MONOCYTES ABSOLUTE AUTO 0.8 K/uL (0.0-0.8); MONOCYTES PERCENT AUTO 14.3 % (0.0-15.0); NEUTROPHILS ABSOLUTE AUTO 3.7 K/uL (1.4-5.7); NEUTROPHILS PERCENT AUTO 69.4 % (48.0-80.0); NRBC ABSOLUTE 0 K/uL; PLATELET COUNT,PLT 151 K/uL (150-400); RED BLOOD CELL COUNT 4.22 M/uL (4.30-5.90); WHITE BLOOD CELL COUNT,WBC 5.39 K/uL (4.0-11.0)
[2023-02-17 06:27] LABS: CALCIUM 6.5 mg/dL (8.5-10.1); CARBON DIOXIDE,CO2 19.2 mmol/L (21.0-32.0); CREATININE 9.8 mg/dL (0.6-1.0); EST CRCL DRUG DOSING (CG) 4.48 mL/min
[2023-02-17] MEDS: Pantoprazole 40 MG in Sodium Chloride 0.9% 10 ML IVPUSH SCH (07:25)
[2023-02-17] MEDS: Polyethylene Glycol 3350 Powder 17 GM Packet PO SCH (08:39)
[2023-02-17] MEDS: Heparin Sodium 5,000 Units/ML Vial SUBCUT SCH ×2 (08:39→21:21)
[2023-02-17] MEDS ORDERED: Calcium Gluconate 10% 1 GM/10 ML SDV IVPUSH ONE (09:12)
[2023-02-17 09:25] LABS: PHOSPHORUS 6.3 mg/dL (2.6-4.7)
[2023-02-17] MEDS: Cholecalciferol (Vitamin D3) 25 MCG Tab PO SCH (14:57)
[2023-02-17] MEDS: Sevelamer Carbonate 800 MG Tab PO SCH (17:06)
[2023-02-17] MEDS: traZODone 50 MG Tab PO SCH (21:21)
[2023-02-18] MEDS: Sodium Chloride 0.9% 1,000 ML IV SCH ×2 (03:45→16:08)
[2023-02-18 05:57] LABS: EOSINOPHILS ABSOLUTE AUTO 0.2 K/uL (0.0-0.7); EOSINOPHILS PERCENT AUTO 3.4 % (0.0-7.0); HEMATOCRIT 35.5 % (36.0-46.0); HEMOGLOBIN 11.9 g/dL (12.0-16.0); LYMPHOCYTES ABSOLUTE AUTO 0.7 K/uL (0.6-2.4); LYMPHOCYTES PERCENT AUTO 12.7 % (16.0-40.0); MEAN CORPUSCULAR HEMOGLOBIN 28.3 pg (27.0-32.0); MEAN CORPUSCULAR HGB CONC 33.5 g/dL (31.0-37.0); MEAN CORPUSCULAR VOLUME 84.5 fL (80.0-98.0); MONOCYTES ABSOLUTE AUTO 0.7 K/uL (0.0-0.8); MONOCYTES PERCENT AUTO 12.9 % (0.0-15.0); NEUTROPHILS ABSOLUTE AUTO 3.9 K/uL (1.4-5.7); NRBC ABSOLUTE 0 K/uL; PLATELET COUNT,PLT 164 K/uL (150-400); WHITE BLOOD CELL COUNT,WBC 5.51 K/uL (4.0-11.0)
[2023-02-18 06:19] LABS: A/G RATIO 0.8 (0.9-1.6); ALBUMIN 2.3 g/dL (3.4-5.0); BILIRUBIN TOTAL 0.3 mg/dL (0.2-1.0); CALCIUM 6.8 mg/dL (8.5-10.1); CREATININE 10.1 mg/dL (0.6-1.0); EST CRCL DRUG DOSING (CG) 4.35 mL/min; POTASSIUM,K 3.9 mmol/L (3.5-5.1); PROTEIN TOTAL,TP 5.3 g/dL (6.4-8.2)
[2023-02-18] MEDS: Pantoprazole 40 MG in Sodium Chloride 0.9% 10 ML IVPUSH SCH (07:00)
[2023-02-18] MEDS: Cholecalciferol (Vitamin D3) 25 MCG Tab PO SCH (10:32)
[2023-02-18] MEDS: Polyethylene Glycol 3350 Powder 17 GM Packet PO SCH (10:32)
[2023-02-18] MEDS: Sevelamer Carbonate 800 MG Tab PO SCH ×3 (10:32→17:26)
[2023-02-18] MEDS: Heparin Sodium 5,000 Units/ML Vial SUBCUT SCH ×2 (10:34→21:02)
[2023-02-18 16:26] LABS: PROTEIN,URINE CONCENTRATION 48.2 mg/dL (0-14)
[2023-02-18 18:14] LABS: PROTEIN,URINE 24HR 1301.4 mg/24HRS
[2023-02-18] MEDS ORDERED: Bisacodyl 10 MG Supp RECTAL PRN (18:38)
[2023-02-18] MEDS: Nystatin Crm 30 GM Tube TOP SCH (21:01)
[2023-02-18] MEDS: traZODone 50 MG Tab PO SCH (22:34)
[2023-02-19] MEDS: Ondansetron 4 MG/2 ML SDV IVPUSH PRN (01:04)
[2023-02-19 06:11] LABS: BASOPHILS PERCENT AUTO 0.2 % (0.0-1.5); EOSINOPHILS ABSOLUTE AUTO 0.2 K/uL (0.0-0.7); EOSINOPHILS PERCENT AUTO 3.1 % (0.0-7.0); HEMATOCRIT 34.7 % (36.0-46.0); HEMOGLOBIN 11.5 g/dL (12.0-16.0); LYMPHOCYTES ABSOLUTE AUTO 0.8 K/uL (0.6-2.4); LYMPHOCYTES PERCENT AUTO 13.7 % (16.0-40.0); MEAN CORPUSCULAR HEMOGLOBIN 28.3 pg (27.0-32.0); MEAN CORPUSCULAR HGB CONC 33.1 g/dL (31.0-37.0); MEAN CORPUSCULAR VOLUME 85.5 fL (80.0-98.0); MONOCYTES ABSOLUTE AUTO 0.8 K/uL (0.0-0.8); MONOCYTES PERCENT AUTO 12.4 % (0.0-15.0); NEUTROPHILS ABSOLUTE AUTO 4.3 K/uL (1.4-5.7); NEUTROPHILS PERCENT AUTO 70.6 % (48.0-80.0); NRBC ABSOLUTE 0 K/uL; PLATELET COUNT,PLT 189 K/uL (150-400); RED BLOOD CELL COUNT 4.06 M/uL (4.30-5.90); WHITE BLOOD CELL COUNT,WBC 6.07 K/uL (4.0-11.0)
[2023-02-19] MEDS: Pantoprazole 40 MG in Sodium Chloride 0.9% 10 ML IVPUSH SCH (06:29)
[2023-02-19] MEDS: Sodium Chloride 0.9% 1,000 ML IV SCH (06:32)
[2023-02-19 06:36] LABS: CALCIUM 7.4 mg/dL (8.5-10.1); CARBON DIOXIDE,CO2 19.5 mmol/L (21.0-32.0); EST CRCL DRUG DOSING (CG) 4.39 mL/min; POTASSIUM,K 4.1 mmol/L (3.5-5.1)
[2023-02-19] MEDS ORDERED: Calcium Gluconate 10% 1 GM/10 ML SDV IVPUSH ONE (07:24)
[2023-02-19] MEDS: Heparin Sodium 5,000 Units/ML Vial SUBCUT SCH ×2 (09:08→20:32)
[2023-02-19] MEDS: Polyethylene Glycol 3350 Powder 17 GM Packet PO SCH (09:08)
[2023-02-19] MEDS: Sevelamer Carbonate 800 MG Tab PO SCH ×3 (09:08→18:32)
[2023-02-19] MEDS: Cholecalciferol (Vitamin D3) 25 MCG Tab PO SCH (09:08)
[2023-02-19] MEDS: Nystatin Crm 30 GM Tube TOP SCH ×2 (09:08→20:34)
[2023-02-19] MEDS: Lisinopril 10 MG Tab PO SCH (18:32)
[2023-02-19] MEDS: traZODone 50 MG Tab PO SCH (20:34)
[2023-02-20] MEDS: Pantoprazole 40 MG in Sodium Chloride 0.9% 10 ML IVPUSH SCH (06:30)
[2023-02-20 06:42] LABS: BASOPHILS PERCENT AUTO 0.1 % (0.0-1.5); EOSINOPHILS ABSOLUTE AUTO 0.3 K/uL (0.0-0.7); EOSINOPHILS PERCENT AUTO 3.7 % (0.0-7.0); HEMOGLOBIN 11.8 g/dL (12.0-16.0); LYMPHOCYTES ABSOLUTE AUTO 0.9 K/uL (0.6-2.4); LYMPHOCYTES PERCENT AUTO 13.5 % (16.0-40.0); MEAN CORPUSCULAR HEMOGLOBIN 29.1 pg (27.0-32.0); MEAN CORPUSCULAR HGB CONC 33.7 g/dL (31.0-37.0); MEAN CORPUSCULAR VOLUME 86.2 fL (80.0-98.0); MONOCYTES ABSOLUTE AUTO 0.7 K/uL (0.0-0.8); MONOCYTES PERCENT AUTO 10.5 % (0.0-15.0); NEUTROPHILS ABSOLUTE AUTO 4.9 K/uL (1.4-5.7); NEUTROPHILS PERCENT AUTO 72.2 % (48.0-80.0); NRBC ABSOLUTE 0 K/uL; PLATELET COUNT,PLT 210 K/uL (150-400); RED BLOOD CELL COUNT 4.06 M/uL (4.30-5.90); WHITE BLOOD CELL COUNT,WBC 6.76 K/uL (4.0-11.0)
[2023-02-20 07:10] LABS: CALCIUM 8.2 mg/dL (8.5-10.1); EST CRCL DRUG DOSING (CG) 4.39 mL/min; PHOSPHORUS 6.6 mg/dL (2.6-4.7); POTASSIUM,K 4.6 mmol/L (3.5-5.1)
[2023-02-20] MEDS: Polyethylene Glycol 3350 Powder 17 GM Packet PO SCH (08:23)
[2023-02-20] MEDS: Sevelamer Carbonate 800 MG Tab PO SCH ×3 (08:24→18:01)
[2023-02-20] MEDS: Cholecalciferol (Vitamin D3) 25 MCG Tab PO SCH (08:24)
[2023-02-20] MEDS: Heparin Sodium 5,000 Units/ML Vial SUBCUT SCH ×2 (08:25→21:47)
[2023-02-20] MEDS: Lisinopril 10 MG Tab PO SCH (08:25)
[2023-02-20] MEDS: Nystatin Crm 30 GM Tube TOP SCH ×2 (08:25→21:49)
[2023-02-20] MEDS: amLODIPine 5 MG Tab PO SCH (13:28)
[2023-02-20] MEDS: traZODone 50 MG Tab PO SCH (21:47)
[2023-02-21] MEDS: Acetaminophen 325 MG Tab PO PRN (01:35)
[2023-02-21 05:58] LABS: HEMATOCRIT 36.3 % (36.0-46.0); HEMOGLOBIN 11.8 g/dL (12.0-16.0); MEAN CORPUSCULAR HEMOGLOBIN 28.2 pg (27.0-32.0); MEAN CORPUSCULAR HGB CONC 32.5 g/dL (31.0-37.0); MEAN CORPUSCULAR VOLUME 86.8 fL (80.0-98.0); MEAN PLATELET VOLUME 10.2 fL (7.40-12.00); RED BLOOD CELL COUNT 4.18 M/uL (4.30-5.90)
[2023-02-21 06:11] LABS: CALCIUM 8.5 mg/dL (8.5-10.1); CREATININE 9.6 mg/dL (0.6-1.0); EST CRCL DRUG DOSING (CG) 4.57 mL/min; MAGNESIUM 2.1 mg/dL (1.8-2.4); PHOSPHORUS 6.5 mg/dL (2.6-4.7); POTASSIUM,K 4.5 mmol/L (3.5-5.1)
[2023-02-21] MEDS: Pantoprazole 40 MG in Sodium Chloride 0.9% 10 ML IVPUSH SCH (06:48)
[2023-02-21] MEDS: Sevelamer Carbonate 800 MG Tab PO SCH ×2 (09:08→12:16)
[2023-02-21] MEDS: Polyethylene Glycol 3350 Powder 17 GM Packet PO SCH (09:08)
[2023-02-21] MEDS: Cholecalciferol (Vitamin D3) 25 MCG Tab PO SCH (09:09)
[2023-02-21] MEDS: Heparin Sodium 5,000 Units/ML Vial SUBCUT SCH (09:09)
[2023-02-21] MEDS: amLODIPine 5 MG Tab PO SCH (09:09)
[2023-02-21] MEDS: Nystatin Crm 30 GM Tube TOP SCH (09:10)
[2023-02-21 11:46] VITALS: BP 137/64
[2023-02-21 12:33] VITALS: PULSE 65
== END 2023-02-21 12:39 | disposition home or self-care (01) | DRG 177 ==
LOC: MW.ED 15:29 → MW.MS 19:20
PROVIDERS: ADMIT Internal Medicine; ATTEND Internal Medicine
PROC: 8E0ZXY6 Isolation (ICD-10-PCS; principal; 2023-02-12)
DX: U07.1 COVID-19 (principal); N17.0 Acute kidney failure with tubular necrosis; N17.9 Acute kidney failure, unspecified; M54.50 Low back pain, unspecified; G89.29 Other chronic pain; E86.0 Dehydration; F41.9 Anxiety disorder, unspecified; E83.39 Other disorders of phosphorus metabolism; F32.A Depression, unspecified; E78.5 Hyperlipidemia, unspecified; E83.51 Hypocalcemia; G62.9 Polyneuropathy, unspecified; N93.9 Abnormal uterine and vaginal bleeding, unspecified; Z88.8 Allergy status to other drugs, medicaments and biological substances; E78.00 Pure hypercholesterolemia, unspecified; I10 Essential (primary) hypertension; Z98.51 Tubal ligation status; Z98.890 Other specified postprocedural states; Z79.82 Long term (current) use of aspirin; Z79.899 Other long term (current) drug therapy; Z87.891 Personal history of nicotine dependence
CPT/HCPCS: 36415; 51702; 71045; 76775; 80053; 81001; 83735; 85025; 85610; 85730; 96360; 99285; J7120; U0002; 76830; 76830-26; 80048; 82306; 82330; 82550; 82570; 84100; 84156; 85027; 96361; 99221; 99231; 99232; 99239; A9270-GY; C9113; J0612; J1644; J2405; J3490; J7030; J7060

== ENCOUNTER 2024-07-10 13:06 | Emergency (ER) | payer MEDICARE, OTHER ==
[2024-07-10] MEDS: Cyclobenzaprine 10 MG Tab PO ONE (14:17)
[2024-07-10 14:59] VITALS: BP 139/72; PULSE 71
== END 2024-07-10 14:57 | disposition home or self-care (01) ==
LOC: MW.ED 13:06
DX: S93.401A Sprain of unspecified ligament of right ankle, initial encounter (principal); S43.401A Unspecified sprain of right shoulder joint, initial encounter; I10 Essential (primary) hypertension; E78.00 Pure hypercholesterolemia, unspecified; Z79.899 Other long term (current) drug therapy; Z91.09 Other allergy status, other than to drugs and biological substances; Z75.8 Other problems related to medical facilities and other health care; W19.XXXA Unspecified fall, initial encounter; Y92.512 Supermarket, store or market as the place of occurrence of the external cause
CPT/HCPCS: 72131; 73030; 73562; 73610; 99284; A9270; 99283